=== PATIENT | female | born 1975 | race Caucasian/White ===

== ENCOUNTER → 2019-10-10 10:20 | Outpatient (CLI) | payer OTHER, SELFPAY ==
--- NOTE | 2019-10-10 10:22 | MR_ITS ---
PROCEDURE: MR HEAD/BRAIN WO CON CLINICAL INDICATION: DIZZINESS AND GIDDINESS, WEAKNESS unsteadiness, pain, visual disturbance COMPARISON: No exams were available for comparison TECHNIQUE: The Routine multiplanar multi echo sequences are performed without gadolinium enhancement. FINDINGS: No midline shift, mass effect, intracranial hemorrhage, or hydrocephalus. No evidence of acute infarction The cerebellopontine angles, cerebellum, and brainstem are unremarkable. There is normal hall-white matter differentiation with no abnormal white matter signal intensity evident. The pituitary, optic chiasm, corpus callosum, and craniocervical junction have an unremarkable appearance. No mastoid effusion or sinus air-fluid level. Left IMPRESSION: Negative MRI of the brain without contrast. No acute intracranial findings. Dictated by: Ed Fall MD 10/10/2019 18:31 Electronically signed by Ed Fall MD in [place] 10/11/2019 11:16
== END ==
PROVIDERS: PCP Emergency Medicine; Visit Provider Psychiatry & Neurology Neurology
DX: R42 Dizziness and giddiness (principal); R53.1 Weakness
CPT/HCPCS: 70551

== ENCOUNTER → 2019-10-15 12:34 | Outpatient (CLI) | payer OTHER, SELFPAY | PROVIDERS: PCP Emergency Medicine; Visit Provider Nurse Practitioner Family | DX: R00.2 Palpitations (principal); R06.09 Other forms of dyspnea; R07.9 Chest pain, unspecified | CPT/HCPCS: 93270 ==

== ENCOUNTER → 2019-10-22 08:10 | Outpatient (CLI) | payer OTHER, SELFPAY ==
--- NOTE | 2019-10-22 | CA_ITS ---
APPROVED REPORT Exam: Exercise Treadmill Technologist: Ragini Isabel Ht: 5 ft 7 in Wt: 166 lbs BSA: 1.87 m2 HR: 75 bpm BP: 88/56 mmHg Indications: Chest pain, Palpitations Medical History Medications: Metoprolol,,,,, ProMETHAZINE,,,,, Tizanidine,,,,, ClonAZapam,,,,, Stress Test Details Test: Tera HR Resting HR: 83 bpm Max Heart Rate (APMHR): 179 bpm Max HR Achieved: 154 bpm Target HR (85% APMHR): 152 bpm % of APMHR: 86 Recovery HR: 84 bpm BP Resting BP: 90.0/68.0 mmHg Max BP: 101.0/67.0 mmHg Recovery BP: 93.0/61.[address] Change: Horizontal ST depression, Upsloping ST depression Clinical Exercise duration: 04:52 min Highest Stage Achieved: Exercise capacity: 7.0 METs Stress ECG Conclusion Resting ECG: Sinus rhythm. Tera protocol completed. Patient exercised for 04:52. Test stopped due to fatigue. Patient denied dizziness. Symptoms: Fatigue at peak exercise, resolved in recovery. No chest pain. No shortness of breath. Arrhythmias/Ectopy: No ectopy noted. ST-T Changes: Less than 1.[address] depression. Conclusion: GXT only. No ectopy. Denied chest pain. Less than 1.[address] depression. Adequate exercise capacity with adequate blood pressure response to exercise. Normal exercise treadmill stress test Test Summary RECOVERY 04:00 0.0 0.0 86 . 97/ 64 . . REST 02:51 0.0 0.0 83 . 90/ 68 . . Stage 1 01:00 10.0 1.7 110 . . . . Stage 1 02:00 10.0 1.7 129 . . . . Stage 1 03:00 10.0 1.7 133 . 82/ 70 . . Stage 2 01:00 12.0 2.5 146 . . . . Stage 2 01:52 12.0 2.5 154 . . . Stop exercise at 04:52 RECOVERY 01:00 0.0 0.0 132 . 90/ 74 . . RECOVERY 02:00 0.0 0.0 98 . 90/ 74 . . RECOVERY 03:00 0.0 0.0 82 . 101/ 67 . . RECOVERY 04:00 0.0 0.0 86 . 97/ 64 . . RECOVERY 04:49 0.0 0.0 83 . 93/ 61 . . Electronically signed by : Javi Reese, 10/22/2019 21:55:42
--- NOTE | 2019-10-22 08:12 | CA_ITS ---
APPROVED REPORT EXAM: Comprehensive 2D, Doppler, and color-flow Echocardiogram Door Clamper: Mandie Cantu RDCS Ht: 5 ft 6 in Wt: 167lbs BSA: 1.85 BP: 99/63 mmHg Indications: Chest Pain, Rheumatic Fever, Murmur, Shortness of Breath, Palpitations 2D Dimensions LVOT 1.98 cm (M/F) 1.5-2.5 M-Mode Dimensions RVDd 2.46 cm (0.9-2.6) LVDd 5.62 cm (3.5-5.7) LVDs 4.12 cm (3.5-5.7) IVSd 0.68 cm (0.6-1.1) PWd 0.68 cm (0.6-1.1) EF (Teich) 51.50% FS 26.70% EDV (Teich) 154.90 mL ESV (Teich) 75.10 mL LV Diastology E/A Ratio 1.78 Mitral Valve MV A Velocity 39.00 (40-130 cm/s) Left Ventricle Left atrium is normal size, left ventricle is normal size, there is no concentric left ventricular hypertrophy, visually estimated ejection fraction 55% with no regional wall motion abnormality, diastolic parameters are within normal range. Right Ventricle Right atrium and right ventricular grossly normal size and contractility. Aortic Valve Aortic valve is minimally thickened and fibrosed, there is no aortic stenosis aortic insufficiency. Mitral Valve Mitral valve is grossly normal, there is mild mitral regurgitation. Tricuspid Valve Tricuspid valve is grossly normal, there is mild tricuspid regurgitation, tricuspid regurgitation jet velocity is inadequate for calculation of the right ventricular systolic pressure. Pulmonic Valve Pulmonic valve is poorly visualized. Great Vessels Aortic root is normal size. Pericardium No significant pericardial effusion noted. Conclusion 1. Normal left ventricular size, preserved left ventricular systolic function, visually estimated ejection fraction 55% with no regional wall motion abnormality, diastolic parameters are within normal range. 2. Mild mitral and tricuspid regurgitation. 3. No significant pericardial effusion noted. Electronically signed by : Javi Reese, 10/22/2019 22:03:06
== END ==
PROVIDERS: PCP Emergency Medicine; Visit Provider Internal Medicine
DX: R07.9 Chest pain, unspecified (principal); R00.2 Palpitations; R06.09 Other forms of dyspnea; R42 Dizziness and giddiness; F17.200 Nicotine dependence, unspecified, uncomplicated; F41.9 Anxiety disorder, unspecified; Z86.79 Personal history of other diseases of the circulatory system
CPT/HCPCS: 93017; 93306

== ENCOUNTER → 2019-11-04 16:46 | Outpatient (CLI) | payer OTHER, SELFPAY ==
[2019-11-04 20:13] LABS: Amphetamine/Metha Screen,Urine Negative ng/mL (<1000); Barbiturates Screen,Urine Negative ng/mL (<200); Benzodiazepines Screen,Urine Negative ng/mL (<200); Cannabinoid Screen,Urine Negative ng/mL (<50); Cocaine Screen,Urine Negative ng/mL (<300); Methadone Screen,Urine Negative ng/mL (<300); Opiate Screen,Urine Negative ng/mL (<300); Phencyclidine Screen,Urine Negative ng/mL (<25)
[2019-11-12 10:10] LABS: Alprazolam Negative (Cutoff=100); Benzodiazepines Positive ng/mL (Cutoff=100); Clonazepam Positive (.); Flurazepam Negative (Cutoff=100); Lorazepam Negative (Cutoff=100); Midazolam Negative (Cutoff=100); Temazepam Negative (Cutoff=100); Triazolam Negative (Cutoff=100)
[2019-11-12 16:44] LABS: Clonazepam Confirm 1170 ng/mL (Cutoff=100)
== END ==
PROVIDERS: Visit Provider Emergency Medicine
DX: F41.9 Anxiety disorder, unspecified (principal); Z79.899 Other long term (current) drug therapy
CPT/HCPCS: 80305; 80346

== ENCOUNTER 2020-05-13 19:25 | Emergency (ER) | payer OTHER, SELFPAY ==
[2020-05-13 19:26] VITALS: BP 111/80; PULSE 131; RESP 20; TEMP 36.9; O2SAT 100; BMI 23.5
--- NOTE | 2020-05-13 19:44 | HMH.EDUTC ---
[facility] [place] Impression: Allergic rhinitis Qualifiers: Allergic rhinitis trigger: unspecified Allergic rhinitis seasonality: unspecified Qualified Code(s): J30.9 - Allergic rhinitis, unspecified Disposition: Home, Self-Care Condition on Discharge: Good Instructions: DI for Allergic Rhinitis, Allergic Rhinitis, Preventing the Spread of Coronavirus Discharge Instructions Additional Instructions: *Monitor Temp, Over the counter Motrin or Tylenol as directed/as needed Tylenol every 4 hours and Motrin every 6 hours (as long as your family doctor has told you that you can take it) for fever or pain. and straight to ER if unable to lower temp less than 101.0 after medication given *Warm salt water gargles may help to soothe the throat *Throat Lozenges *Warm fluids like tea with honey may help to soothe the throat *Sleep elevated *Humidifier/Vaporizer *Flonase 2 sprays in each nostril daily but be aware that it may take 2-3 days before you notice improvement Take medication as prescribed You was swabbed for COVID19, go home self quarantine and follow further instructions that was given to you on the handout. Call back to the [facility] on Monday for your results, no work or being around people or in the public until negative test Your throat swab was sent for culture. Those results are typically sent to your primary care. Be sure to follow up in 2-3 days with your family doctor/primary care physician if no improvement so they can review those result and treat if necessary. If you don?t have a primary care doctor, I recommend you get one but in the mean time, you will have to return to a walk in clinic Follow up IMMEDIATELY for new or worsening symptoms or no Noticeable improvement over the next 48-72 hours. 911 for difficulty breathing or swallowing Prescriptions: Cetirizine HCl 10 mg PO DAILY 30 Days #30 tab Transmission Status: Pending to [facility] # Fluticasone Propionate [Flonase 50mcg nasal spray 16gm] 1 - 2 spr NS DAILY #1 bottle Transmission Status: Pending to [facility]: [place] # Referrals: Frankie Cleveland MD [Primary Care Provider] - As needed Forms: Work/School Release Time of Disposition: 19:58 Medical Decision Making - Rhys Inquiry Pt receiving controlled substance: No Rhys was queried for this patient: No Vital Signs: 05/13/20 19:26 Temperature 98.4 F Temperature Source Oral Pulse Rate [Right] 131 H Respiratory Rate 20 Blood Pressure [Right Arm] 111/80 Blood Pressure Mean [Right Arm] 90 02 Sat by Pulse Oximetry 100 - Lab Data Lab results reviewed: Yes: I reviewed the patient's lab results. [facility] [place] - General Stated complaint: fever Time Seen by Provider: 05/13/20 19:45 Mode of Arrival: Ambulatory Limitations: No Limitations Description of Symptoms (Recalled from Triage Doc. by RN): C/O fever, dry mouth, sore throat and body aches that began today. HEENT Symptoms (Recalled from RN notes): Yes Resp Symptoms (Recalled from RN notes): No Skin Symptoms (Recalled from RN notes): No MS Symptoms (Recalled from RN notes): No Functional Status (Recalled from RN notes): na - History of Present Illness Provider Complaint: Patient states that she woke up earlier today with fever. States that she is unsure how high it was and had dry scratchy throat, and body aches, State that it scared her and she started feeling anxious worried that she may have Coronavirus so she came in to get checked States that she has bad allergies and has been out of her medication for over a month - Related Data Home Medications Medication Instructions Recorded Confirmed promethazine 25 mg tablet 25 mg PO Q6H PRN 10/07/19 11/04/19 tizanidine 4 mg capsule 4 mg PO Q8H PRN 10/07/19 11/04/19 trazodone 100 mg tablet 200 mg PO DAILY tab 11/04/19 11/04/19 Previous Rx's Medication Instructions Recorded clonazepam 0.5 mg tablet 0.5 mg PO BID #60 tab 10/07/19 metoprolol succinate 25 mg 25 mg
[2020-05-13 19:52] LABS: UTC Strep Screen (Rapid) Negative (Negative)
[2020-05-13 20:01] VITALS: BP 145/87; PULSE 115; RESP 20; TEMP 36.8; O2SAT 98
[2020-05-15 17:50] LABS: Covid-19 Nasal PCR Sendout Lex Not Detected
== END 2020-05-13 20:04 | disposition home or self-care (01) ==
PROVIDERS: Emergency Provider Nurse Practitioner; PCP Emergency Medicine
DX: J30.9 Allergic rhinitis, unspecified (principal); F41.8 Other specified anxiety disorders; R01.1 Cardiac murmur, unspecified; F17.210 Nicotine dependence, cigarettes, uncomplicated; Z88.5 Allergy status to narcotic agent
CPT/HCPCS: 87880; 99202; U0004

== ENCOUNTER 2020-07-08 20:13 | Emergency (ER) | payer OTHER, SELFPAY ==
[2020-07-08 20:15] VITALS: BP 102/65; PULSE 86; RESP 16; TEMP 36.9; O2SAT 97; BMI 22.7
--- NOTE | 2020-07-08 20:23 | ECG_ITS ---
APPROVED REPORT Exam: Resting ECG HR:80 bpm ECG Measurements Heart Rate 80 AXES KS 124 P 80 QRSd 84 QRS 72 QT 376 T 72 QTc 433 <Conclusion> Normal sinus rhythm Normal ECG Electronically signed by : Bon Knight, 07/10/2020 07:53:35
--- NOTE | 2020-07-08 20:37 | XR_ITS ---
PROCEDURE: XR CHEST 2V CLINICAL HISTORY: lightheaded Dehydration COMPARISON: CR CXR CHEST(2 VIEWS-NOT PORTABLE) from 07/17/2014 CR XR CHEST 2V from 07/09/2019 CR XR CHEST 2V from 08/27/2019 FINDINGS: The cardiomediastinal silhouette and pulmonary vascularity are within normal limits. The lungs are clear without infiltrates, suspicious nodules, or pleural effusions. No acute bony abnormalities. IMPRESSION: No acute findings. Dictated b Ed Fall MD 07/09/2020 06:21 Ed Fall MD in [place] 07/09/2020 06:21
[2020-07-08 20:39] VITALS: BP 100/63; PULSE 71; RESP 18; O2SAT 98
--- NOTE | 2020-07-08 20:43 | HMH.EDDIZZ ---
ED Disposition Clinical Impression: Lightheadedness Disposition: Home, Self-Care Condition on Discharge: Good Instructions: Dizziness, Nonvertigo Additional Instructions: fluids and see pcp for follow up Referrals: Frankie Cleveland MD [Primary Care Provider] - - Critical Care Critical Care Time: No Attestation: On 07/08/20, the high probability of a clinically significant, sudden or life threatening deterioration of the following system(s) required my full and direct attention, intervention and personal management. The time I documented below is in addition to time spent performing reported procedures but includes the following listed in this critical care notation. Medical Decision Making - Medical Records Medical records reviewed: Yes: I reviewed the patient's medical records. - Rhys Inquiry Pt receiving controlled substance: No Vital Signs: 07/08/20 20:15 07/08/20 20:39 07/08/20 21:30 Temperature 98.5 F Temperature Source Oral Pulse Rate [Left Radial] 86 71 67 Respiratory Rate 16 18 18 Blood Pressure [Right Arm] 102/65 L 100/63 L 103/63 L Blood Pressure Mean [Right Arm] 77 75 76 Blood Pressure Source [Right Arm] Automatic Cuff Blood Pressure Position [Right Arm] Sitting 02 Sat by Pulse Oximetry 97 98 100 Oxygen Delivery Method Room Air Room Air - Lab Data Lab results reviewed: Yes: I reviewed the patient's lab results. Lab Results 07/08/20 21:25: WBC 10.8, RBC 4.49, Hgb 14.3, Hct 43.3, MCV 96.4, MCH 31.8 H, MCHC 33.0, RDW 13.2, Plt Count 311, MPV 8.9, Neut % (Auto) 57.9, Lymph % (Auto) 31.9, Garza % (Auto) 4.6, Eos % (Auto) 4.9, Baso % (Auto) 0.6, Neut # (Auto) 6.3, Lymph # (Auto) 3.5, Garza # (Auto) 0.5, Eos # (Auto) 0.5 H, Baso # (Auto) 0.1 07/08/20 21:25: Sodium 139, Potassium 3.9, Chloride 104, Carbon Dioxide 27, Anion Gap 11.9, BUN 6 L, Creatinine 0.70, Estimated Creat Clear 109, Estimated GFR 92, Est GFR ( Amer) 111, Glucose 95, Calcium 9.7, Total Bilirubin 0.8, AST 21, ALT 13, Alkaline Phosphatase 67, Troponin I < 0.01, Total Protein 8.0, Albumin 4.5, Globulin 3.5 H, Albumin/Globulin Ratio 1.3 Result diagrams: 07/08/20 21:25 07/08/20 21:25 Orders (Tests/Meds): ED MEDICATIONS Generic Name Dose Route Start Last Admin Trade Name Freq PRN Reason Stop Dose Admin Sodium Chloride 1,000 mls @ 999 mls/hr 07/08/20 21:30 07/08/20 21:19 Sod Chlor 0.9% 1000ml Bag IV 07/08/20 22:30 999 mls/hr .Q1H1M EDITH Administration ORDERS Category Date Time Status XR chest 2V Stat Exams 07/08/20 20:37 Taken Troponin I Q3H Lab 07/08/20 23:45 Ordered Troponin I Q3H Lab 07/09/20 02:45 Ordered - Radiology Data #1 Image(s): Chest Image Reviewed: Yes I reviewed the patient's radiology image Preliminary Findings: Normal/NAD - ECG Data Tracing #1 Normal Sinus Rhythm: Yes Ischemic changes: non-specific ST-T wave changes Dizzy HPI - General Chief Complaint: Dizziness Stated Complaint: sweating and shaking Time Seen by Provider: 07/08/20 20:25 Mode of Arrival: Ambulatory Source of Information: Patient, Medical Record Limitations: No Limitations Description of Symptoms (Recalled from ER Triage Doc. 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 pt stated saw their [employer] on sight who suggested she was dehydrated. pt stated she is currently feeling better but still feels a little off pt denies any SOB or chest pain at this time. - History of Present Illness HPI Narrative: acute onset of lightheded and dizzy with sweating with no loc or chest pain or palpitation MD complaint: dizziness, lightheadedness Onset (ago): hour(s) Timing: sudden onset Description: lightheadedness History of similar episodes: No Severity: moderate Associated symptoms: diaphoresis - Related Data Home Medications Medication Instructions Recorded Confirmed rosalinda
--- NOTE | 2020-07-08 21:19 | PC.NURSE ---
Pt is a difficult stick, 22ga placed in wrist unable to get blood draw, lab called for blood
[2020-07-08 21:30] VITALS: BP 103/63; PULSE 67; RESP 18; O2SAT 100
[2020-07-08 21:35] LABS: Basophils # 0.1 K/mm3 (0-0.2); Basophils % 0.6 % (0.1-2.0); Eosinophils # 0.5 K/mm3 (0.0-0.4); Eosinophils % 4.9 % (0.1-12.0); Hematocrit 43.3 % (37.0-47.0); Hemoglobin 14.3 g/dL (12.2-16.2); Lymphocytes # 3.5 K/mm3 (0.7-4.5); Lymphocytes % 31.9 % (10-50); Mean Corpuscular Hemoglobin 31.8 pg (27.0-31.2); Mean Corpuscular Volume 96.4 fl (81-99); Mean Platelet Volume 8.9 fl (7.4-10.4); Monocytes # 0.5 K/mm3 (0.1-1.0); Monocytes % 4.6 % (1.7-9.3); Neutrophils # 6.3 K/mm3 (1.8-7.8); Neutrophils % 57.9 % (37.0-80.0); Platelet Count 311 K/mm3 (142-424); Red Blood Count 4.49 M/mm3 (4.20-5.40); Red Cell Distribution Width 13.2 % (11.5-17.5); White Blood Count 10.8 K/mm3 (4.8-10.8)
[2020-07-08 21:44] LABS: Chloride 104 mmol/L (98-107); Potassium 3.9 mmoL/L (3.5-5.1); Sodium 139 mmol/L (136-145)
[2020-07-08 21:46] LABS: Blood Urea Nitrogen 6 mg/dl (7-17); Creatinine Clearance Estimated 109 mL/min (50-200); Estimated Glomerular Filt Rate 92 ml/min (>60); GFR (African American) 111 ML/MIN (>60)
[2020-07-08 21:47] LABS: Alanine Aminotransferase 13 U/L (12-78); Albumin Level 4.5 g/dl (3.5-5.0); Albumin/Globulin Ratio 1.3 (1.1-1.8); Alkaline Phosphatase 67 U/L (38-126); Anion Gap 11.9 mEq/L (5-15); Aspartate Amino Transferase 21 U/L (14-36); Bilirubin,Total 0.8 mg/dl (0.2-1.3); Calcium 9.7 mg/dl (8.4-10.2); Carbon Dioxide 27 mmol/L (22.0-30.0); Globulin 3.5 g/dL (1.3-3.2); Glucose 95 mg/dl (74-100)
[2020-07-08 22:05] LABS: Troponin I < 0.01 ng/ml (0.00-0.034)
[2020-07-08 22:31] VITALS: BP 98/55; PULSE 75; RESP 14; TEMP 36.9; O2SAT 100
== END 2020-07-08 22:34 | disposition home or self-care (01) ==
PROVIDERS: Emergency Provider Emergency Medicine; PCP Emergency Medicine
DX: R42 Dizziness and giddiness (principal); F41.8 Other specified anxiety disorders; R01.1 Cardiac murmur, unspecified; F17.210 Nicotine dependence, cigarettes, uncomplicated; Z88.5 Allergy status to narcotic agent; Z79.899 Other long term (current) drug therapy
CPT/HCPCS: 36415; 71046; 80053; 84484; 85025; 93005; 96365; 99283

== ENCOUNTER → 2021-09-20 21:00 | Outpatient (CLI) | payer OTHER, SELFPAY ==
[2021-09-20 21:14] LABS: Influenza A, PCR Not Detected (NotDetected); Influenza B, PCR Not Detected (NotDetected)
[2021-09-20 21:35] LABS: Coronavirus 19, PCR Detected (NotDetected)
== END ==
PROVIDERS: PCP Emergency Medicine; Visit Provider Emergency Medicine
DX: Z20.822 Contact with and (suspected) exposure to COVID-19 (principal); U07.1 COVID-19
CPT/HCPCS: C9803; U0003; U0005

== ENCOUNTER 2021-10-19 12:34 | Emergency (ER) | payer OTHER, SELFPAY ==
[2021-10-19 12:44] VITALS: BP 108/68; PULSE 85; RESP 18; TEMP 37.1; O2SAT 100; BMI 23.5
--- NOTE | 2021-10-19 14:31 | HMH.EDALLER ---
ED Disposition Clinical Impression: Allergic reaction Disposition: Home, Self-Care Condition on Discharge: Good Additional Instructions: Please follow up with your primary care physician in 2-3 days for further management. Please take the famotidine and benadryl as prescribed. Please return back to emergency department for any concerning symptoms such as difficulty breathing, wheezing, chest pain, difficulty swallowing, scratchy throat, worsening rash or any other concerning symptoms. Prescriptions: diphenhydrAMINE HCL [Benadryl Allergy] 25 mg PO Q8 PRN 3 Days #9 tab PRN Reason: Rash Transmission Status: Received by [employer] # Famotidine 10 mg PO DAILYP PRN #3 tab PRN Reason: Rash Transmission Status: Received by [employer] # Referrals: Frankie Cleveland MD [Primary Care Provider] - - Critical Care Critical Care Time: No Attestation: On 10/19/21, the high probability of a clinically significant, sudden or life threatening deterioration of the following system(s) required my full and direct attention, intervention and personal management. The time I documented below is in addition to time spent performing reported procedures but includes the following listed in this critical care notation. Medical Decision Making - Medical Records Medical records reviewed: Yes: I reviewed the patient's medical records. - Rhys Inquiry Pt receiving controlled substance: No Vital Signs: 10/19/21 12:44 10/19/21 15:54 Temperature 98.8 F 98.8 F Temperature Source Oral Oral Pulse Rate 82 Pulse Rate [Left Radial] 85 Respiratory Rate 18 18 Blood Pressure 110/70 Blood Pressure [Right Arm] 108/68 L Blood Pressure Mean [Right Arm] 81 02 Sat by Pulse Oximetry 100 Oxygen Delivery Method Room Air Room Air Orders (Tests/Meds): ED MEDICATIONS Discontinued Medications Generic Name Dose Route Start Last Admin Trade Name Freq PRN Reason Stop Dose Admin Dexamethasone Sodium Phosphate 8 mg 10/19/21 12:51 10/19/21 13:26 Dexamethasone 4mg/Ml 1ml Vial IV 10/19/21 12:52 8 mg ONCE ONE Administration Diphenhydramine HCl 50 mg 10/19/21 12:51 10/19/21 15:11 Diphenhydramine 50mg/Ml Vial IV 10/19/21 12:52 Not Given ONCE ONE Diphenhydramine HCl 25 mg 10/19/21 13:44 10/19/21 13:45 Diphenhydramine 25mg Capsule PO 10/19/21 13:45 25 mg ONCE ONE Administration Famotidine 20 mg 10/19/21 12:51 10/19/21 13:25 Famotidine 20mg/2ml Vial IV 10/19/21 12:52 20 mg ONCE ONE Administration Sodium Chloride 1,000 mls @ 999 mls/hr 10/19/21 13:00 10/19/21 13:26 Sod Chlor 0.9% 1000ml Bag IV 10/19/21 14:00 999 mls/hr .Q1H1M EDITH Administration Sodium Chloride 8 ml 10/19/21 12:51 Sodium Chloride 0.9% 10ml Vial IV 11/18/21 12:50 NEEDED PRN dilute pepcid Medical Decision Narrative: Miss north is a 45 yo female w/ no significant PMh who presents w/ generalized pruritic, uricarial rash which appeared today. No mucosal involvement. No other organ involvement. Denies dysphagia, sore or itchy throat. No wheezing, chest pain or dyspnea. no N/V , abd pain or other GI symptoms. Physical exam patient is hemodynamically stable, no mucosal involvement. Patient denies any new medication use. No known allergen. Given current clniical picture, low concern for anaphalxis. Patient is given benadry, 1L IV LR,and famotidine. Patient is instructed to wash all of her clothing, bed spread. Patient is also given benadryl and famotidine script for outpatient management to prevent rebound symptoms. Patient instructed to return if symptoms worsen. Allergic React/Insect Bite HPI - General Chief complaint: Allergic Reaction Stated complaint: rash all over Time Seen by Provider: 10/19/21 12:40 Mode of Arrival - ED Triage: Ambulatory Source of Information: Patient Limitations: No Limitations - History of Present Illness HPI narrative: Miss North is a 45 yo fem
[2021-10-19 15:54] VITALS: BP 110/70; PULSE 82; RESP 18; TEMP 37.1; O2SAT 100
== END 2021-10-19 16:02 | disposition home or self-care (01) ==
PROVIDERS: Emergency Provider Student in an Organized Health Care Education/Training Program; PCP Emergency Medicine
DX: T78.40XA Allergy, unspecified, initial encounter (principal); F41.8 Other specified anxiety disorders; R01.1 Cardiac murmur, unspecified
CPT/HCPCS: 96365; 96375; 99282

== ENCOUNTER 2021-11-02 14:00 | Outpatient (RCR) | payer OTHER, SELFPAY ==
--- NOTE | 2021-10-29 12:29 | HMH.PTOPEV ---
PT Outpatient Evaluation Rehab PT Outpatient Evaluation Start: 10/29/21 11:37 Freq: Status: Active Protocol: Document 10/29/21 11:54 DAVIN (Rec: 10/29/21 12:29 DAVIN [id number]) Electronically Signed By Grant Burrell, PT 10/29/21 11:54 Outpatient Therapy Subjective History Subjective History Patient is a 45 year old female presenting to outpatient PT with reports of left lower quadrant pain. This is a workmans comp case. 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 She was taken to [facility] ED where they suspected possible hernia. She did receive a CT scan, but no imaging/reports on site to observe today. Patient reports a sharp, stabbing, cramping sensation with movement and palpation. I can feel things moving around on the inside of my belly. Comorbidities include hx of rheumatic fever resulting in cardiac regurgitation, hx of and cholecystectomy. PT suggests that she is not a good candidate for stretching or core stabilization at this time. Chief Complaint Pain,Spasms,Swelling Symptom Type Sharp,Stabbing Symptoms Relieved By Rest/Positioning,Heat,Ice,OTC Meds Symptoms Aggravated By Standing,Physical Activity, Twisting,Walking,Lifting, Sneeze/Coughing Prior Functional Limitations None Current Functional Limitations Reaching,Lifting,Housework, Dressing,Sleeping,Standing, Squatting,Recreation Activity, Walking,Stairs,Bending/ Stooping Symptom Description Constant but Variable Level of pain today (0-10) 2 Pain scale - at its best (0-10) 2 Pain scale - at its worst (0-10) 7 Lumbopelvic Eval Assistive device Assistive Devices None / NA Gait Observation General Gait Pattern Observation Antalgic Gait,Decrease Weight
== END 2021-11-02 14:05 | disposition home or self-care (01) ==
LOC: PT 14:00
PROVIDERS: Visit Provider Emergency Medicine
DX: R10.32 Left lower quadrant pain (principal)
CPT/HCPCS: 97163

== ENCOUNTER → 2022-01-31 09:32 | Outpatient (CLI) | payer OTHER, SELFPAY ==
[2022-01-31 09:57] LABS: Basophils # 0.2 K/mm3 (0-0.2); Basophils % 1.5 % (0.1-2.0); Eosinophils # 0.9 K/mm3 (0.0-0.4); Eosinophils % 9.2 % (0.1-12.0); Hematocrit 43.9 % (37.0-47.0); Hemoglobin 14.1 g/dL (12.2-16.2); Lymphocytes # 2.4 K/mm3 (0.7-4.5); Lymphocytes % 24.4 % (10-50); Mean Corpuscular HGB Conc 32.1 g/dL (31.8-35.4); Mean Corpuscular Hemoglobin 31.8 pg (27.0-31.2); Mean Corpuscular Volume 98.9 fl (81-99); Mean Platelet Volume 10.4 fl (7.4-10.4); Monocytes # 0.7 K/mm3 (0.1-1.0); Monocytes % 7.1 % (1.7-9.3); Neutrophils # 5.8 K/mm3 (1.8-7.8); Neutrophils % 57.8 % (37.0-80.0); Platelet Count 392 K/mm3 (142-424); Red Blood Count 4.44 M/mm3 (4.20-5.40); Red Cell Distribution Width 12.9 % (11.5-17.5)
[2022-01-31 10:27] LABS: Chloride 101 mmol/L (98-107); Potassium 3.8 mmoL/L (3.5-5.1); Sodium 136 mmol/L (136-145)
[2022-01-31 10:29] LABS: Bilirubin,Unconjugated 0.3 mg/dL (0.0-1.1); Blood Urea Nitrogen 5 mg/dl (7-17); Estimated Glomerular Filt Rate 91 ml/min (>60); GFR (African American) 110 ML/MIN (>60)
[2022-01-31 10:30] LABS: Alanine Aminotransferase 25 U/L (12-78); Albumin Level 4.1 g/dl (3.5-5.0); Alkaline Phosphatase 65 U/L (38-126); Anion Gap 10.8 mEq/L (5-15); Aspartate Amino Transferase 26 U/L (14-36); Bilirubin,Direct 0.3 mg/dl (0.0-0.4); Bilirubin,Indirect 0.3 mg/dL (0.0-0.9); Bilirubin,Total 0.6 mg/dl (0.2-1.3); Calcium 8.9 mg/dl (8.4-10.2); Carbon Dioxide 28 mmol/L (22.0-30.0); Chol/HDL Ratio 3.6 (1-3.5); Cholesterol 195 mg/dl (140-200); Glucose 65 mg/dl (74-100); HDL Cholesterol 54 mg/dl (40-60); Total Protein,Serum 6.8 g/dl (6.3-8.2); Triglycerides 88 mg/dl (30-150); VLDL Cholesterol 18 mg/dL (0-40)
[2022-01-31 10:42] LABS: Direct LDL Cholesterol 122.51 mg/dL (100-129)
[2022-01-31 10:46] LABS: Free T4 (Free Thyroxine) 1.12 ng/dl (0.78-2.19)
== END ==
PROVIDERS: Visit Provider Nurse Practitioner Family
DX: R06.09 Other forms of dyspnea (principal); R42 Dizziness and giddiness; R00.2 Palpitations; R00.0 Tachycardia, unspecified; I95.9 Hypotension, unspecified; F17.200 Nicotine dependence, unspecified, uncomplicated
CPT/HCPCS: 36415; 80048; 80061; 80076; 84439; 84443; 85025

== ENCOUNTER → 2022-02-10 13:34 | Outpatient (CLI) | payer OTHER, SELFPAY ==
--- NOTE | 2022-02-10 13:38 | CA_ITS ---
APPROVED REPORT EXAM: Comprehensive 2D, Doppler, and color-flow Echocardiogram Hydrotel Operator: ALEJANDRA Mazariegos, RVS Ht: 5 ft 7 in Wt: 157lbs BSA: 1.82 BP: 88/65 mmHg Indications: Axiety, Hyperventilation, Tachycardia, Murmur, sob, smoker 2D Dimensions IVSd 0.90 cm LVEF (Visual) 55.40 % PWd 0.90 cm LA Volume 28.80 mL LVDd 5.27 cm LA Volume Index 15.80 mL/m2 (M/F) 16-34 LVDs 3.74 cm Aortic Root 2.78 cm Left Atrium 2.70 cm LVOT 1.98 cm (M/F) 1.5-2.5 M-Mode Dimensions RVDd 2.21 cm (0.9-2.6) LA Diam 2.59 cm (1.9-4.0) LVDd 4.87 cm (3.5-5.7) Ao Diam 3.30 cm (2.0-3.7) LVDs 3.58 cm (3.5-5.7) IVSd 0.80 cm (0.6-1.1) PWd 0.68 cm (0.6-1.1) EF (Teich) 51.70% EPSs 0.61 cm FS 26.50% EDV (Teich) 111.20 mL TAPSE 1.79 (<1.7) ESV (Teich) 53.70 mL LV Diastology E Decel Time 177.00 (160-240 msec) E/A Ratio 0.93 MED E' 11.00 (< 7 cm/sec) MED A' 14.90 cm/s E'/MED E' Ratio 6.94 (>14) LAT E' 14.20 (<10 cm/sec) LAT A' 10.00 cm/s E/LAT E' Ratio 5.37 (>14) Pulm Vein s 58.00 cm/sec Aortic Valve LVOT Max 103.00 (70-110 cm/s) LVOT VTI 17.27 cm AoV Peak Jhonathan. 124.00 (50-130 cm/s) AO Peak GR. 6.10 mmHg AO Mean GR. 3.00 (<5 mmHg) AO VTI 20.44 (18-25 cm) KVNG (VTI) 2.60 (2.5-4.5 cm2) Mitral Valve MV E Max Jhonathan. 76.00 (40-130 cm/s) MV A Velocity 82.00 (40-130 cm/s) E/A Ratio 0.93 MV Decel. Time 177.00 (160-240 ms) MV Mean Gr. 0.90 (<2mmHg) MV PHT 52.00 ms Pulmonary Valve PV Peak Velocity 111.00 (50-150 cm/s) AR End VMAX 159.00 cm/s Left Ventricle Left atrium is qualitatively mildly enlarged, left ventricle is normal size, preserved left ventricular systolic function, visually estimated ejection fraction 55% with no regional wall motion abnormality. Diastolic parameters are inconclusive. Right Ventricle Right atrium and right ventricle are normal size and contractility. Aortic Valve Aortic valve is minimally thickened and fibrosed, there is no aortic stenosis or aortic insufficiency. Mitral Valve Mitral valve grossly normal, there is trace mitral regurgitation. Tricuspid Valve Tricuspid grossly normal, there is trace tricuspid regurgitation, tricuspid regurgitation jet velocity is inadequate for calculation of the right ventricular systolic pressure. Pulmonic Valve Pulmonic valve is poorly visualized. Great Vessels Aortic root is normal size. Inferior vena cava normal size normal inspiratory collapse. Pericardium No significant pericardial effusion noted. Conclusion 1. Normal left ventricular size, preserved left ventricular systolic function, visually estimated ejection fraction 55% with no regional wall motion abnormality, diastolic parameters are inconclusive. 2. Minimally thickened and calcified aortic valve without aortic stenosis or aortic insufficiency. 3. Trace mitral and tricuspid regurgitation. 4. No significant pericardial effusion noted. 5. Inferior vena cava is normal size with normal inspiratory collapse. Electronically signed by : Javi Reese MD 02/11/2022 11:07:31
== END ==
PROVIDERS: PCP Emergency Medicine; Visit Provider Nurse Practitioner Family
DX: R06.09 Other forms of dyspnea (principal); R00.2 Palpitations; R00.0 Tachycardia, unspecified; F17.200 Nicotine dependence, unspecified, uncomplicated
CPT/HCPCS: 93306

== ENCOUNTER → 2022-04-20 10:08 | Outpatient (CLI) | payer OTHER, SELFPAY ==
[2022-04-20 10:34] LABS: Basophils # 0.1 K/mm3 (0-0.2); Basophils % 1.4 % (0.1-2.0); Eosinophils # 0.7 K/mm3 (0.0-0.4); Eosinophils % 8.4 % (0.1-12.0); Hematocrit 44.2 % (37.0-47.0); Hemoglobin 14.6 g/dL (12.2-16.2); Lymphocytes # 2.4 K/mm3 (0.7-4.5); Lymphocytes % 30.9 % (10-50); Mean Corpuscular Hemoglobin 32.6 pg (27.0-31.2); Mean Corpuscular Volume 98.7 fl (81-99); Mean Platelet Volume 8.7 fl (7.4-10.4); Monocytes # 0.5 K/mm3 (0.1-1.0); Monocytes % 6.1 % (1.7-9.3); Neutrophils # 4.2 K/mm3 (1.8-7.8); Neutrophils % 53.2 % (37.0-80.0); Platelet Count 467 K/mm3 (142-424); Red Blood Count 4.48 M/mm3 (4.20-5.40); Red Cell Distribution Width 13.4 % (11.5-17.5); White Blood Count 7.8 K/mm3 (4.8-10.8)
[2022-04-20 10:59] LABS: Erythrocyte Sedimentation Rate 16 mm/hr (0-20)
[2022-04-20 11:17] LABS: Alanine Aminotransferase 56 U/L (12-78); Albumin Level 4.3 g/dl (3.5-5.0); Albumin/Globulin Ratio 1.5 (1.1-1.8); Alkaline Phosphatase 69 U/L (38-126); Aspartate Amino Transferase 55 U/L (14-36); Bilirubin,Total 0.3 mg/dl (0.2-1.3); Blood Urea Nitrogen 5 mg/dl (7-17); Calcium 9.6 mg/dl (8.4-10.2); Carbon Dioxide 32 mmol/L (22.0-30.0); Chloride 102 mmol/L (98-107); Estimated Glomerular Filt Rate 91 ml/min (>60); GFR (African American) 110 ML/MIN (>60); Globulin 2.9 g/dL (1.3-3.2); Glucose 90 mg/dl (74-100); Sodium 140 mmol/L (136-145); Total Protein,Serum 7.2 g/dl (6.3-8.2)
[2022-04-20 11:22] LABS: C-Reactive Protein 0.7 mg/L (0-4)
[2022-04-20 11:33] LABS: 25-OH Vitamin D, Total 33.1 ng/mL (30-100)
[2022-04-20 11:48] LABS: Thyroid Stimulating Hormone 2.61 uIU/mL (0.465-4.68)
[2022-04-20 12:07] LABS: Vitamin B12 194 pg/mL (239-931)
[2022-04-21 11:32] LABS: RA Latex Turbid. <10.0 IU/mL (<14.0)
[2022-04-22 11:53] LABS: Antinuclear Antibodies, IFA Negative (.)
== END ==
PROVIDERS: PCP Nurse Practitioner Family; Visit Provider Nurse Practitioner Family
DX: M06.9 Rheumatoid arthritis, unspecified (principal); M25.50 Pain in unspecified joint; R53.83 Other fatigue
CPT/HCPCS: 36415; 80053; 82306; 82607; 84443; 84550; 85025; 85651; 86038; 86140; 86431

== ENCOUNTER 2022-06-16 19:39 | Observation (INO) | payer OTHER, SELFPAY ==
--- NOTE | 2022-06-16 19:36 | ECG_ITS ---
APPROVED REPORT Exam: Resting ECG HR:90 bpm ECG Measurements Heart Rate 90 AXES SC 128 P 92 QRSd 95 QRS 84 QT 369 T 64 QTc 416 Conclusion SINUS RHYTHM NORMAL ECG UNCONFIRMED REPORT Electronically signed by : Bon Knight MD 06/17/2022 15:35:54
[2022-06-16 19:40] VITALS: BP 110/69; PULSE 92; RESP 18; TEMP 37.1; O2SAT 97; BMI 23.5
--- NOTE | 2022-06-16 19:41 | XR_ITS ---
PROCEDURE INFORMATION: Exam: XR Chest Exam date and time: 06/16/22 07:36 PM Age: 46 years old Clinical indication: Pain; Left-sided; Additional info: Lt arm pain TECHNIQUE: Imaging protocol: Radiologic exam of the chest. Views: 2 views. COMPARISON: CR XR CHEST 2V 07/08/20 08:46 PM FINDINGS: Lungs: Unremarkable. No consolidation. Pleural spaces: Unremarkable. No pleural effusion. No pneumothorax. Heart/Mediastinum: Unremarkable. No cardiomegaly. Bones/joints: Unremarkable. IMPRESSION: No acute findings.
[2022-06-16 20:00] LABS: Basophils # 0.1 K/mm3 (0-0.2); Basophils % 1.2 % (0.1-2.0); Eosinophils # 0.8 K/mm3 (0.0-0.4); Eosinophils % 6.9 % (0.1-12.0); Hematocrit 40.8 % (37.0-47.0); Hemoglobin 14.1 g/dL (12.2-16.2); Lymphocytes # 3.6 K/mm3 (0.7-4.5); Lymphocytes % 30.7 % (10-50); Mean Corpuscular HGB Conc 34.6 g/dL (31.8-35.4); Mean Corpuscular Hemoglobin 32.2 pg (27.0-31.2); Mean Corpuscular Volume 93.2 fl (81-99); Mean Platelet Volume 9.2 fl (7.4-10.4); Monocytes # 0.6 K/mm3 (0.1-1.0); Monocytes % 5.2 % (1.7-9.3); Neutrophils # 6.5 K/mm3 (1.8-7.8); Platelet Count 429 K/mm3 (142-424); Red Blood Count 4.37 M/mm3 (4.20-5.40); Red Cell Distribution Width 12.2 % (11.5-17.5); White Blood Count 11.6 K/mm3 (4.8-10.8)
[2022-06-16 20:02] LABS: Chloride 103 mmol/L (98-107); Sodium 140 mmol/L (136-145)
[2022-06-16 20:05] LABS: Blood Urea Nitrogen 6 mg/dl (7-17); Creatinine Clearance Estimated 129 mL/min (50-200); Estimated Glomerular Filt Rate 109 ml/min (>60); GFR (African American) 131 ML/MIN (>60)
[2022-06-16 20:06] LABS: Carbon Dioxide 29 mmol/L (22.0-30.0); Glucose 130 mg/dl (74-100)
[2022-06-16 20:07] LABS: Calcium 9.9 mg/dl (8.4-10.2)
[2022-06-16 20:20] LABS: Troponin I < 0.01 ng/ml (0.00-0.034)
[2022-06-16 20:21] LABS: Coronavirus 19, PCR Not Detected (NotDetected); Influenza A, PCR Not Detected (NotDetected); Influenza B, PCR Not Detected (NotDetected)
[2022-06-16 20:28] VITALS: BP 105/66; PULSE 70; O2SAT 100
--- NOTE | 2022-06-16 20:46 | PC.NURSE ---
Allergy bracelet placed on pt. Pt ambulatory to bathroom with no assistance.
[2022-06-16 20:55] LABS: Microscopic, Urine URINE MICROSCOPIC (MICROSCOPIC)
[2022-06-16 20:56] LABS: Appearance,Urine CLEAR (Clear); Bilirubin,Urine Negative (Negative); Blood, Urine 2+ (Negative); Color,Urine YELLOW (Yellow); Glucose,Urine (UA) Negative (Negative); Ketones,Urine Negative (Negative); Leukocyte Esterase,Urine Negative (Negative); Nitrate,Urine Negative (Negative); Protein,Urine Negative (Negative); Specific Gravity, Urine <= 1.005 (1.005-1.030); Urobilinogen,Urine 0.2 EU/dl (0.2)
[2022-06-16 21:10] LABS: Bacteria,Urine 1+ /lpf
--- NOTE | 2022-06-16 21:29 | PC.NURSE ---
at speaking with pt about POC
--- NOTE | 2022-06-16 21:33 | HMH.EDCP ---
ED Disposition Clinical Impression: Unstable angina pectoris, Hx of rheumatic fever, Tobacco use Disposition: Admitted as Observation Condition on Discharge: Good - Critical Care Critical Care Time: No Attestation: On 06/16/22, the high probability of a clinically significant, sudden or life threatening deterioration of the following system(s) required my full and direct attention, intervention and personal management. The time I documented below is in addition to time spent performing reported procedures but includes the following listed in this critical care notation. Medical Decision Making - Medical Records Medical records reviewed: Yes: I reviewed the patient's medical records. - Rhys Inquiry Pt receiving controlled substance: No Vital Signs: 06/16/22 19:40 06/16/22 20:28 06/16/22 21:35 Temperature 98.7 F Temperature Source Oral Pulse Rate 70 82 Pulse Rate [Right] 92 H Respiratory Rate 18 Blood Pressure 105/66 L 99/64 L Blood Pressure [Right Arm] 110/69 Blood Pressure Mean [Right Arm] 82 02 Sat by Pulse Oximetry 97 100 97 Oxygen Delivery Method Room Air Room Air 06/16/22 22:05 Temperature Temperature Source Pulse Rate 70 Pulse Rate [Right] Respiratory Rate Blood Pressure 90/61 L Blood Pressure [Right Arm] Blood Pressure Mean [Right Arm] 02 Sat by Pulse Oximetry 97 Oxygen Delivery Method Room Air - Lab Data Lab results reviewed: Yes: I reviewed the patient's lab results. Lab Results 06/16/22 19:50: WBC 11.6 H, RBC 4.37, Hgb 14.1, Hct 40.8, MCV 93.2, MCH 32.2 H, MCHC 34.6, RDW 12.2, Plt Count 429 H, MPV 9.2, Neut % (Auto) 56.0, Lymph % (Auto) 30.7, [place] % (Auto) 5.2, Eos % (Auto) 6.9, Baso % (Auto) 1.2, Neut # (Auto) 6.5, Lymph # (Auto) 3.6, [place] # (Auto) 0.6, Eos # (Auto) 0.8 H, Baso # (Auto) 0.1 06/16/22 19:50: Sodium 140, Potassium 3.0 L, Chloride 103, Carbon Dioxide 29, Anion Gap 11.0, BUN 6 L, Creatinine 0.60, Estimated Creat Clear 129, Estimated GFR 109, Est GFR ( Amer) 131, Glucose 130 H, Calcium 9.9, Troponin I < 0.01 06/16/22 19:50: SARS-CoV-2 (PCR) Not detected, Influenza A Untype (PCR) Not detected, Influenza Type B (PCR) Not detected 06/16/22 20:49: Urine Color Yellow, Urine Appearance Clear, Urine pH 6.0, Ur Specific [place] <= 1.005, Urine Protein Negative, Urine Glucose (UA) Negative, Urine Ketones Negative, Urine Blood 2+, Urine Nitrate Negative, Urine Bilirubin Negative, Urine Urobilinogen 0.2, Ur Leukocyte Esterase Negative, Urine RBC 5-10, Urine WBC 3-5, Ur Squamous Epith Cells 3-5, Urine Bacteria 1+ Result diagrams: 06/16/22 19:50 06/16/22 19:50 Orders (Tests/Meds): ED MEDICATIONS Generic Name Dose Route Start Last Admin Trade Name Freq PRN Reason Stop Dose Admin Sodium Chloride 1,000 mls @ 999 mls/hr 06/16/22 19:45 06/16/22 19:52 Sod Chlor 0.9% 1000ml Bag IV 06/16/22 20:45 999 mls/hr .Q1H1M EDITH Administration Discontinued Medications Generic Name Dose Route Start Last Admin Trade Name Freq PRN Reason Stop Dose Admin Nitroglycerin 0.4 mg 06/16/22 19:50 06/16/22 19:51 Nitroglycerin 0.4mg Sl Tablet SL 06/16/22 19:51 0.4 mg ONCE ONE Administration Nitroglycerin 1 gm 06/16/22 19:55 06/16/22 20:27 Nitroglycerin 1 Gm Ointment TD 06/16/22 19:56 1 gm ONCE ONE Administration Potassium Chloride 40 meq 06/16/22 20:41 06/16/22 21:33 Potassium Chloride 20meq Tab PO 06/16/22 20:42 40 meq ONCE ONE Administration ORDERS Category Date Time Status C-Reactive Protein Stat Lab 06/16/22 21:34 Ordered Erythrocyte Sedimentation Rate Stat Lab 06/16/22 21:34 Ordered Procalcitonin Stat Lab 06/16/22 21:34 Ordered Troponin I Q3H Lab 06/16/22 22:45 Ordered Troponin I Q3H Lab 06/17/22 01:45 Ordered - Radiology Data #1 Image(s): Chest Image Reviewed: Yes I have reviewed radiologist's interpretation Preliminary Findings: Normal/NAD - ECG Data Tracing #1 Normal Sinus Rhythm: Yes
--- NOTE | 2022-06-16 21:34 | PC.NURSE ---
pt didn't recieved ASA due to Rheumatic fever
[2022-06-16 21:35] VITALS: BP 99/64; PULSE 82; O2SAT 97
--- NOTE | 2022-06-16 22:02 | PC.NURSE ---
pt updated on POC. voiced no c/o
[2022-06-16 22:05] VITALS: BP 90/61; PULSE 70; O2SAT 97
--- NOTE | 2022-06-16 22:22 | PC.NURSE ---
supervisor quality control notified of pt admission and need for bed assignment.
[2022-06-16 22:24] VITALS: BMI 24.0
[2022-06-16 23:11] VITALS: BP 90/55; PULSE 74; RESP 19; TEMP 36.8; O2SAT 97
--- NOTE | 2022-06-16 23:17 | PC.NURSE ---
PT ARRIVED TO FLOOR VIA W/C FROM ED W/STAFF @ [id number]
[2022-06-16 23:22] LABS: Erythrocyte Sedimentation Rate 17 mm/hr (0-20)
[2022-06-16 23:28] VITALS: BP 92/58; PULSE 74; RESP 18; TEMP 37.5; O2SAT 98
[2022-06-16 23:52] LABS: C-Reactive Protein 3.9 mg/L (0-4)
[2022-06-17] VITALS: PULSE 74
[2022-06-17 00:05] LABS: Procalcitonin 0.033 ng/mL (0.0-2.0)
[2022-06-17 00:16] LABS: Troponin I < 0.01 ng/ml (0.00-0.034)
[2022-06-17 02:30] LABS: Troponin I < 0.01 ng/ml (0.00-0.034)
[2022-06-17 04:00] VITALS: BP 81/46; PULSE 62; PULSE 65; RESP 18; TEMP 36.8; O2SAT 94
--- NOTE | 2022-06-17 04:42 | PC.NURSE ---
Addendum entered by Belia Waldron RN 06/17/22 05:20: Soft pressures noted this am. Paged Mishel who ordered 250 ml bolus of NS. Original Note: Patient admitted to floor. Patient has had no complaints of chest pain, arm , or jaw pain since arriving to floor. Patient is NSR on tele. Patient has been npo since [place] awaiting cardio consult.
[2022-06-17 05:13] VITALS: BP 72/42; PULSE 69
[2022-06-17 05:59] VITALS: BP 82/42; PULSE 67
[2022-06-17 06:33] LABS: Basophils # 0.1 K/mm3 (0-0.2); Basophils % 0.6 % (0.1-2.0); Eosinophils # 0.6 K/mm3 (0.0-0.4); Eosinophils % 7.4 % (0.1-12.0); Hematocrit 32.6 % (37.0-47.0); Lymphocytes # 3.3 K/mm3 (0.7-4.5); Lymphocytes % 39.6 % (10-50); Mean Corpuscular HGB Conc 33.7 g/dL (31.8-35.4); Mean Corpuscular Hemoglobin 31.9 pg (27.0-31.2); Mean Corpuscular Volume 94.7 fl (81-99); Mean Platelet Volume 8.3 fl (7.4-10.4); Monocytes # 0.5 K/mm3 (0.1-1.0); Monocytes % 6.3 % (1.7-9.3); Neutrophils # 3.9 K/mm3 (1.8-7.8); Neutrophils % 46.2 % (37.0-80.0); Platelet Count 284 K/mm3 (142-424); Red Blood Count 3.44 M/mm3 (4.20-5.40); Red Cell Distribution Width 12.3 % (11.5-17.5); White Blood Count 8.4 K/mm3 (4.8-10.8)
[2022-06-17 06:43] LABS: Anion Gap 4.6 mEq/L (5-15); Blood Urea Nitrogen 4 mg/dl (7-17); Calcium 7.8 mg/dl (8.4-10.2); Carbon Dioxide 25 mmol/L (22.0-30.0); Chloride 112 mmol/L (98-107); Chol/HDL Ratio 4.5 (1-3.5); Cholesterol 144 mg/dl (140-200); Creatinine Clearance Estimated 131 mL/min (50-200); Estimated Glomerular Filt Rate 109 ml/min (>60); GFR (African American) 131 ML/MIN (>60); Glucose 94 mg/dl (74-100); HDL Cholesterol 32 mg/dl (40-60); Magnesium 1.7 mg/dl (1.6-2.3); Potassium 3.6 mmoL/L (3.5-5.1); Sodium 138 mmol/L (136-145); Triglycerides 64 mg/dl (30-150); VLDL Cholesterol 13 mg/dL (0-40)
[2022-06-17 06:54] LABS: Direct LDL Cholesterol 88.45 mg/dL (100-129)
--- NOTE | 2022-06-17 07:18 | P.CONPHA_ITS ---
[facility] Pharmacy VTE Monitoring - Patient Demographics Admission date: 06/17/22 Report Date: 06/17/22 Time: 07:18 Allergies/Adverse Reactions: Patient Allergies MORPHINE Allergy (Intermediate, Uncoded 11/09/21 11:56) SWELLING AND RASH Height: 1.7 m Weight: 69.541 kg Patient Problems: Current Active Problems Unstable angina pectoris (Acute) Tobacco use (Acute) Hx of rheumatic fever (Acute) - VTE Risk Labs: VTE Related Lab Results Hgb 11.0 g/dL (12.2-16.2) L D 06/17/22 06:25 Hct 32.6 % (37.0-47.0) L 06/17/22 06:25 Plt Count 284 K/mm3 (142-424) D 06/17/22 06:25 BUN 4 mg/dl (7-17) L D 06/17/22 06:25 Creatinine 0.60 mg/dl (0.52-1.04) 06/17/22 06:25 Estimated Creat Clear 131 mL/min (50-200) 06/17/22 06:25 Was VTE Risk Assessment Performed: Yes VTE Score: 1 VTE Risk Level: Very Low Risk Clinical Trial Participant: No - Prophylaxis VTE Prophylaxis Ordered?: Yes Types of VTE Prophylaxis: TEDS Knee High
[2022-06-17 08:00] VITALS: BP 91/52; PULSE 66; PULSE 68; RESP 18; TEMP 36.8; O2SAT 98
--- NOTE | 2022-06-17 09:08 | HMH.CNCARD ---
History of Present Illness Consult date: 06/17/22 Requesting physician: Frankie Cleveland Consult reason: chest pain Chief complaint: chest pain Additional Medical History:: Current smoker History of present illness: 46 year old female with above past medical hx presented to ED last night with complaint of left sided chest pain. Reports has had some intermittent chest pain x a few weeks, started again yesterday and thought better get it checked out. reports didnt last long. no associated soa or nausea. describess pain and pressure. Serial trops in ER negative, EKG negative for ischemic changes. pain free currently. [facility] History Medical History: Reports:: Anxiety, Depression, Heart Murmur Denies:: Cancer, Diabetes Mellitus Type 1, Diabetes Mellitus Type 2, MRSA *Have you ever received a pneumonia vaccine?: No *Have you received a flu vaccine this season?: No Laterality Cases: Bilateral: Tonsillectomy Other Surgeries: Yes: Cholecystectomy, Tubal Ligation Amputation: No Fractures: No - *Social History Last grade of school completed: Some college Smoking Status: Current every day smoker Tobacco Type: cigarettes # Packs/Day (cigarettes): 1 #Yrs smoked (if former smoker): 15 Alcohol Intake: never Substance Use Type: denies use *Occupational Status:: employed Housing: house *Travel in the last 8 weeks: None - Psychiatric History Pschychiatric History:: Reports:: Anxiety, Depression Family Hx:: Heart Attack Meds Home Medications Medication Instructions Recorded Confirmed Type Cetirizine HCl 10 mg PO DAILY 07/08/20 06/16/22 History diphenhydrAMINE HCL [Benadryl 25 mg PO Q8 PRN 3 Days #9 tab 10/19/21 06/16/22 Rx Allergy] [id number] 18 1 tab PO DAILY tab 01/31/22 06/16/22 History mg-FA 400 mcg-vit K 25 mcg tablet Famotidine [Pepcid] 40 mg PO HS 06/17/22 06/17/22 History Allergies Allergy/AdvReac Type Severity Reaction Status Date / Time morphine Allergy Rash Verified 06/17/22 07:21 Exam Vital signs and Labs for Last 24 Hours: Temp Pulse Resp BP Pulse Ox 98.2 F 68 18 91/52 L 98 06/17/22 08:00 06/17/22 08:00 06/17/22 08:00 06/17/22 08:00 06/17/22 08:00 Laboratory Results - last 24 hr 06/16/22 19:50: WBC 11.6 H, RBC 4.37, Hgb 14.1, Hct 40.8, MCV 93.2, MCH 32.2 H, MCHC 34.6, RDW 12.2, Plt Count 429 H, MPV 9.2, Neut % (Auto) 56.0, Lymph % (Auto) 30.7, [place] % (Auto) 5.2, Eos % (Auto) 6.9, Baso % (Auto) 1.2, Neut # (Auto) 6.5, Lymph # (Auto) 3.6, [place] # (Auto) 0.6, Eos # (Auto) 0.8 H, Baso # (Auto) 0.1 06/16/22 19:50: Sodium 140, Potassium 3.0 L, Chloride 103, Carbon Dioxide 29, Anion Gap 11.0, BUN 6 L, Creatinine 0.60, Estimated Creat Clear 129, Estimated GFR 109, Est GFR ( Amer) 131, Glucose 130 H, Calcium 9.9, Troponin I < 0.01 06/16/22 19:50: SARS-CoV-2 (PCR) Not detected, Influenza A Untype (PCR) Not detected, Influenza Type B (PCR) Not detected 06/16/22 19:50: ESR 17 06/16/22 20:49: Urine Color Yellow, Urine Appearance Clear, Urine pH 6.0, Ur Specific [place] <= 1.005, Urine Protein Negative, Urine Glucose (UA) Negative, Urine Ketones Negative, Urine Blood 2+, Urine Nitrate Negative, Urine Bilirubin Negative, Urine Urobilinogen 0.2, Ur Leukocyte Esterase Negative, Urine RBC 5-10, Urine WBC 3-5, Ur Squamous Epith Cells 3-5, Urine Bacteria 1+ 06/16/22 22:52: Troponin I < 0.01 06/16/22 22:52: C-Reactive Protein 3.9, Procalcitonin 0.033 06/17/22 01:50: Troponin I < 0.01 06/17/22 06:25: WBC 8.4 D, RBC 3.44 L, Hgb 11.0 L D, Hct 32.6 L, MCV 94.7, MCH 31.9 H, MCHC 33.7, RDW 12.3, Plt Count 284 D, MPV 8.3, Neut % (Auto) 46.2, Lymph % (Auto) 39.6, [place] % (Auto) 6.3, Eos % (Auto) 7.4, Baso % (Auto) 0.6, Neut # (Auto) 3.9, Lymph # (Auto) 3.3, [place] # (Auto) 0.5, Eos # (Auto) 0.6 H, Baso # (Auto) 0.1 06/17/22 06:25: Sodium 138, Potassium 3.6, Chloride 112 H, Carbon Dioxide 25, Anion Gap 4.6 L, BUN 4 L D, Creatinine 0.60, Estimated Creat Clear 131, Estimated GFR 109, Est GFR ( Amer) 1
--- NOTE | 2022-06-17 09:28 | HMH.HPDC ---
General - General Admission date:: 06/16/22 Discharge date: 06/17/22 *Admission Date: 06/17/22 *Chief complaint: Chest Pain *History of present illness: 46-year-old female patient presents to the [facility] emergency department with reports of left-sided chest pain. She reports she has been having chest pain off and on for several weeks started yesterday and radiated to left neck with a large amount of pressure in left arm. She reports she was traveling in a car and admits shortness of breath but denies diaphoresis with chest pain. She also has a history of rheumatic heart disease. Chest x-ray reveals no acute findings Cardiology consulted [facility] History I have reviewed the patient's past medical history: Yes Medical History: Reports:: Anxiety, Depression, Heart Murmur Denies:: Cancer, Diabetes Mellitus Type 1, Diabetes Mellitus Type 2, MRSA *Have you ever received a pneumonia vaccine?: No *Have you received a flu vaccine this season?: No Laterality Cases: Bilateral: Tonsillectomy Other Surgeries: Yes: Cholecystectomy, Tubal Ligation Amputation: No Fractures: No - *Social History Last grade of school completed: Some college Smoking Status: Current every day smoker Tobacco Type: cigarettes # Packs/Day (cigarettes): 1 #Yrs smoked (if former smoker): 15 Alcohol Intake: never Substance Use Type: denies use *Occupational Status:: employed Housing: house *Travel in the last 8 weeks: None - Psychiatric History Pschychiatric History:: Reports:: Anxiety, Depression Family Hx:: Heart Attack Review of Systems - Review of Systems Review of systems:: pertinent systems reviewed and negative unless documented below - Constitutional Reports fatigue, Denies body ache(s), Denies chills - Eyes Denies blurry vision, Denies double vision - ENT Denies abnormal hearing, Denies difficulty swallowing, Denies headache(s) - *Cardiovascular Reports chest pain, Reports chest pain at rest, Reports shortness of breath - *Respiratory Reports shortness of breath - *Gastrointestinal Denies abdominal pain, Denies change in stools, Denies nausea - *Musculoskeletal Denies joint pain, Denies body aches - Integumentary/Breasts Denies yellowing of the skin, Denies non-healing lesions - *Neurologic Denies abnormal walking, Denies confusion, Denies dizziness - Psychiatric Denies anxiety, Denies change in appetite, Denies confusion - Endocrine Denies cold intolerance, Denies increased thirst - Hematologic/Lymphatic Denies easy bleeding, Denies easy bruising - Allergic/Immunologic Denies GI upset with certain foods, Denies throat swelling Exam Vital signs and Labs for Last 24 Hours: Temp Pulse Resp BP Pulse Ox 98.2 F 68 18 91/52 L 98 06/17/22 08:00 06/17/22 08:00 06/17/22 08:00 06/17/22 08:00 06/17/22 08:00 Laboratory Results - last 24 hr 06/16/22 19:50: WBC 11.6 H, RBC 4.37, Hgb 14.1, Hct 40.8, MCV 93.2, MCH 32.2 H, MCHC 34.6, RDW 12.2, Plt Count 429 H, MPV 9.2, Neut % (Auto) 56.0, Lymph % (Auto) 30.7, [place] % (Auto) 5.2, Eos % (Auto) 6.9, Baso % (Auto) 1.2, Neut # (Auto) 6.5, Lymph # (Auto) 3.6, [place] # (Auto) 0.6, Eos # (Auto) 0.8 H, Baso # (Auto) 0.1 06/16/22 19:50: Sodium 140, Potassium 3.0 L, Chloride 103, Carbon Dioxide 29, Anion Gap 11.0, BUN 6 L, Creatinine 0.60, Estimated Creat Clear 129, Estimated GFR 109, Est GFR ( Amer) 131, Glucose 130 H, Calcium 9.9, Troponin I < 0.01 06/16/22 19:50: SARS-CoV-2 (PCR) Not detected, Influenza A Untype (PCR) Not detected, Influenza Type B (PCR) Not detected 06/16/22 19:50: ESR 17 06/16/22 20:49: Urine Color Yellow, Urine Appearance Clear, Urine pH 6.0, Ur Specific [place] <= 1.005, Urine Protein Negative, Urine Glucose (UA) Negative, Urine Ketones Negative, Urine Blood 2+, Urine Nitrate Negative, Urine Bilirubin Negative, Urine Urobilinogen 0.2, Ur Leukocyte Esterase Negative, Urine RBC 5-10, Urine WBC 3-5, Ur Squamous Epith Cells 3-5
--- NOTE | 2022-06-17 11:57 | PC.NURSE ---
Pt called carloz.
--- NOTE | 2022-06-20 15:30 | CARE MANAGER ---
Spoke with patient for post-discharge phone interview, patient states that she feels better but is tired. Patient is aware of follow-up appointments, no issues noted.
== END 2022-06-17 12:36 | disposition home or self-care (01) ==
LOC: ER 22:13 → 2ND 22:43
PROVIDERS: Admitting Provider Emergency Medicine; Emergency Provider Emergency Medicine; PCP Nurse Practitioner Family; Visit Provider Emergency Medicine
DX: R07.9 Chest pain, unspecified (principal); I25.110 Atherosclerotic heart disease of native coronary artery with unstable angina pectoris; F17.210 Nicotine dependence, cigarettes, uncomplicated; Z86.79 Personal history of other diseases of the circulatory system; Z79.899 Other long term (current) drug therapy
CPT/HCPCS: 36415; 71046; 80048; 80061; 81001; 83735; 84145; 84484; 85025; 85651; 86140; 93005; 99285; C9803; G0378; U0003; U0005

== ENCOUNTER 2022-06-23 21:00 | Emergency (ER) | payer OTHER, SELFPAY ==
[2022-06-23 21:45] VITALS: BP 00/00; PULSE 0; RESP 0; TEMP -17.7; TEMP 0
--- NOTE | 2022-06-23 21:48 | PC.NURSE ---
Patient left from lobby without being seen. Per registration, patient was here for edema and swelling. Patient left for unknown reasons. Due to patient already being registered by registration patient had to be discharged as left without being seen, however, patient was never technically in the ER due to lack of rooms.
== END 2022-06-23 21:48 | disposition left against medical advice (07) ==
LOC: ER 21:09
PROVIDERS: Emergency Provider Emergency Medicine; PCP Nurse Practitioner Family
DX: Z53.21 Procedure and treatment not carried out due to patient leaving prior to being seen by health care provider (principal)

== ENCOUNTER → 2022-07-05 07:16 | Outpatient (CLI) | payer SELFPAY | PROVIDERS: PCP Nurse Practitioner Family; Visit Provider Internal Medicine Cardiovascular Disease | DX: R07.9 Chest pain, unspecified (principal) ==

== ENCOUNTER → 2022-07-05 07:18 | Outpatient (CLI) | payer BC, OTHER, SELFPAY ==
--- NOTE | 2022-07-05 | CA_ITS ---
APPROVED REPORT Exam: Exercise Treadmill Technologist: Nazia Bella, Ht: 5 ft 7 in Wt: 159 lbs BSA: 1.83 m2 HR: 79 bpm BP: 98/66 mmHg Rhythm: NSR, NS ST abn in lead 3 Medical History Medications: Famotidine,,,,, DiPHENHYDRAMINE,,,,, CetIRIZINE,,,,, ONE A DAY Vitamins,,,,, Cardiac Risk Factors: Smoking Stress Test Details Test: Samuel HR Resting HR: 99 bpm Max Heart Rate (APMHR): 176.480526 bpm Max HR Achieved: 181 bpm Target HR (85% APMHR): 149.352721 bpm % of APMHR: 102.84 Recovery HR: 157 bpm BP Resting BP: 97/69 mmHg Max BP: 135/75 mmHg Recovery BP: 145.0/79.0 mmHg ECG Resting ECG: NSR, NS ST abn in lead 3 Clinical Exercise duration: 07:01 min Highest Stage Achieved: Exercise capacity: 10.1 METs Stress ECG Conclusion During samuel protocol pt exercised total of 7:00 minutes into stage 3. No CP noted. No arrhythmias noted. NS T wave changes in leads 3 and aVF. Within normal GXT. Myoview images reported separately. Test Summary RECOVERY 05:00 0.0 0.0 105 . 119/ 77 . . REST . . . . . . . Standing REST 04:01 0.0 0.0 99 . 97/ 69 . . Stage 1 01:00 10.0 1.7 120 . . . . Stage 1 02:00 10.0 1.7 133 . . . . Stage 1 03:00 10.0 1.7 150 . 105/ 70 . . Stage 2 01:00 12.0 2.5 155 . . . . Stage 2 02:00 12.0 2.5 161 . . . . Stage 2 03:00 12.0 2.5 169 . . . . Stage 3 01:00 14.0 3.4 178 . . . . Stage 3 01:01 14.0 3.4 178 . . . Stop exercise at 07:01 RECOVERY 01:00 0.0 0.0 169 . . . . RECOVERY 02:00 0.0 0.0 132 . . . . RECOVERY 03:00 0.0 0.0 121 . 135/ 75 . . RECOVERY 04:00 0.0 0.0 106 . 135/ 75 . . RECOVERY 05:00 0.0 0.0 105 . 119/ 77 . . RECOVERY 05:21 0.0 0.0 100 . 119/ 77 . . Electronically signed by : Javi Reese MD 07/06/2022 06:31:01
--- NOTE | 2022-07-05 07:19 | NM_ITS ---
APPROVED REPORT Exam: Nuclear Stress Test Indication: Chest pain, SOB, Abnormal EKG, Former tobacco use, Family history Patient Location: Outpatient Stress Tech: Nazia VELÁSQUEZ Tech:Cesilia Maya, ARRT, RT (R)(N) Ht: 5 ft 7 in Wt: 155 lbs Bra Size: D HR: 99 bpm BP: 97/69 mmHg BSA: 1.81 m2 TID: 1.12 BMI: 24.2 History: Chest pain, SOB, Abnormal EKG, Former tobacco use, Family history Procedure: Patient exercised on Tera protocol 7:01 minutes and sec, resting heart rate 99 bpm, resting blood pressure 97/69 mmHg, with exercise maximum heart rate achived was 181 bpm which is 103 % of the maximum predicted heart rate and blood pressure was 135/75 mmHg. Test was stopped due to SOB. Patient denied any complaint of chest pain. Patient has good exercise capacity, achieved 10.1 METs of workload on treadmill, the blood pressure response to exercise was Adequate. Electrocardiogram Resting electrocardiogram shows sinus rhythm, with exercise there is less than 1.[address] segment depression noted from the baseline EKG. The EKG portion of the exercise Myoview is negative for ischemia. Cardiac Stress and Resting SPECT Images: Cardiac Stress and Resting SPECT images were obtained using technetium 99m Myoview 28.9 mCi stress and 10.76 mCi at rest. Gated SPECT for analysis of segmental wall motion and calculation of the ejection fraction also done. Prone images were also obtained. Cardiac stress and rest SPECT images show uniform myocardial activity without segmental perfusion abnormality, computer derived ejection fraction 51% with no regional wall motion abnormality, right ventricle is normal size and contractility. Conclusion: 1. The EKG portion of the exercise Myoview is negative for ischemia, patient has good exercise capacity achieved 10.1 METs of workload on treadmill, the blood pressure response to exercise was adequate, there was no exercise-induced chest discomfort. 2. No scintigraphic evidence of reversible ischemia seen, computer derived ejection fraction 51% with no regional wall motion abnormality, right ventricle is normal size and contractility. 3. Normal exercise Myoview study. Electronically signed by : Javi Reese MD 07/06/2022 06:35:02
--- NOTE | 2022-07-05 08:02 | CA_ITS ---
APPROVED REPORT EXAM: Comprehensive 2D, Doppler, and color-flow Echocardiogram Consultant Internship: Stephanie Trinidad CRT Ht: 5 ft 7 in Wt: 159lbs BSA: 1.83 BP: 110/72 mmHg Indications: Abnormal ECG, Chest Pain, Murmur, Palpitations 2D Dimensions LVOT 2.02 cm (M/F) 1.5-2.5 LA Volume 35.40 mL LA Volume Index 19.30 mL/m2 (M/F) 16-34 M-Mode Dimensions RVDd 2.73 cm (0.9-2.6) LA Diam 2.68 cm (1.9-4.0) LVDd 4.44 cm (3.5-5.7) Ao Diam 3.60 cm (2.0-3.7) LVDs 3.08 cm (3.5-5.7) IVSd 1.16 cm (0.6-1.1) PWd 0.96 cm (0.6-1.1) EF (Teich) 58.40% FS 30.60% EDV (Teich) 89.60 mL TAPSE 1.57 (<1.7) ESV (Teich) 37.30 mL LV Diastology E Decel Time 157.00 (160-240 msec) E/A Ratio 1.18 MED E' 9.40 (< 7 cm/sec) MED A' 7.10 cm/s E'/MED E' Ratio 7.67 (>14) LAT E' 11.60 (<10 cm/sec) LAT A' 7.70 cm/s E/LAT E' Ratio 6.22 (>14) Aortic Valve AO Peak GR. 5.50 mmHg Mitral Valve MV E Max Jhonathan. 72.00 (40-130 cm/s) MV A Velocity 61.00 (40-130 cm/s) E/A Ratio 1.18 MV Decel. Time 157.00 (160-240 ms) MV PHT 46.00 ms Pulmonary Valve PV Peak Velocity 137.00 (50-150 cm/s) Tricuspid Valve TR P. Velocity 226.00 cm/s RAP Estimate 10.00 mmHg RVSP 30.50 mmHg Left Ventricle Left atrium normal size, left ventricle is normal size preserved left ventricular systolic function, estimated ejection fraction 55% with no regional wall motion abnormality, diastolic parameters are within normal range. Right Ventricle Right atrium and right ventricle are normal size and contractility. Aortic Valve Aortic valve is grossly normal there is no aortic stenosis or aortic insufficiency. Mitral Valve Mitral valve grossly normal, there is no significant mitral regurgitation seen. Tricuspid Valve Tricuspid valve grossly normal, there is no significant tricuspid regurgitation seen. Pulmonic Valve Pulmonic valve is poorly visualized. Great Vessels Aortic root is normal size. Inferior vena cava is normal size with normal spectral collapse. Pericardium No significant pericardial effusion noted. Conclusion 1. Normal left ventricular size preserved left ventricular systolic function, estimated ejection fraction 55% with no regional wall motion abnormality, diastolic parameters are within normal range. 2. No significant pericardial effusion noted. 3. Inferior vena cava is normal size with normal inspiratory collapse. Electronically signed by : Javi Reese MD 07/06/2022 06:15:43
--- NOTE | 2022-07-05 09:30 | HMH.ITSHM ---
Current Home Medications as stated by this patient Chula Tolentino or instruments sales representative. []OMEPRAZOLE MULTIVITAMIN FAMOTIDINE CETIRIZINE
== END ==
PROVIDERS: PCP Nurse Practitioner Family; Visit Provider Internal Medicine Cardiovascular Disease
DX: R06.09 Other forms of dyspnea (principal); R00.2 Palpitations; R07.9 Chest pain, unspecified; R94.31 Abnormal electrocardiogram [ECG] [EKG]; Z72.0 Tobacco use; Z86.79 Personal history of other diseases of the circulatory system
CPT/HCPCS: 78452; 93017; 93306; A9502

== ENCOUNTER 2022-10-22 01:20 | Emergency (ER) | payer OTHER, SELFPAY ==
[2022-10-22 01:21] VITALS: BP 100/60; PULSE 130; RESP 16; TEMP 37.9; O2SAT 94; BMI 25.8
--- NOTE | 2022-10-22 01:27 | HMH.EDGENADL ---
Discharge Plan Disposition Patient Disposition: Home, Self-Care Condition: Fair Prescriptions Prescriptions: No Action One-A-Day Women's Complete 18 mg-400 mcg- 25 mcg tablet 1 tab PO DAILY omeprazole 40 mg capsule,delayed release(DR/EC) 40 mg PO QDAY Qty: 30 1RF Rx Instructions: swallow whole; do not crush, chew, dissolve, or cut/break diphenhydramine HCl 25 MG tablet 25 mg PO Q8 PRN (Reason: Rash) 3 Days Qty: 9 0RF cetirizine 10 MG tablet 10 mg PO DAILY famotidine 40 MG tablet 40 mg PO HS Referrals Follow up/Referrals: Beba Infante APRN [Primary Care Provider] - See instructions Activity Restrictions/Add. Instructions Additional Instructions/Restrictions: You have been evaluated for cough, body aches, generalized malaise. You have been diagnosed with COVID-19. Please monitor your symptoms closely. Take Tylenol for aches, pains, fever. Try to stay hydrated. [place] food. Follow-up with your primary care doctor in 1 to 2 days for symptom recheck. Return to the emergency department at once for any new or worsening symptoms, shortness of breath, cough, inability to tolerate oral intake, any other concerns Clinical Impressions Clinical Impression: COVID-19 Instructions Patient Instructions: DI for COVID-19 (Suspected or Confirmed ), How to Care for Someone with COVID-19 Discharge ED Provider: Gemini Sheppard General Adult HPI General Chief complaint: Upper Respiratory Infection Stated complaint: Fever,nausea,weak,body aches Time Seen by Provider: 10/22/22 01:23 History of Present Illness HPI narrative: 46-year-old female presenting to the emergency department with body aches, sore throat, headache, generalized malaise. Symptoms started 2 days ago as intermittent, generalized body aches. Today, symptoms are much worse. She is a headache that is described as constant and throbbing. Located on both temples. Does not radiate. Feels like all of her muscles hurt, shoulders, arms, legs, back. She is unable to find a position of comfort. Could not fall asleep. Tried taking Benadryl without relief. She has developed fevers, chills, sore throat. Feels dehydrated. Has not had much appetite. Took Advil about 2 hours ago. Denies known sick contacts. No chest pain, shortness of breath, abdominal pain, rashes on her skin Related Data Home Medications Medication Instructions Recorded Confirmed cetirizine 10 mg tablet 10 mg PO DAILY Allergy symptoms 07/08/20 06/24/22 [id number]-hnpiien-fazj-iron 18 1 tab PO DAILY Supplement 01/31/22 06/24/22 mg-FA 400 mcg-vit K 25 mcg tablet (One-A-Day Women's Complete) famotidine 40 mg tablet 40 mg PO HS acid reflux 06/17/22 06/24/22 Previous Rx's Medication Instructions Recorded diphenhydramine HCl 25 mg tablet 25 mg PO Q8 PRN Rash 3 days #9 tabs 10/19/21 omeprazole 40 mg capsule,delayed 40 mg PO QDAY #30 caps 06/24/22 release Allergies Allergy/AdvReac Type Severity Reaction Status Date / Time morphine Allergy Rash Verified 06/24/22 14:48 [facility] Medical History (Updated 10/22/22 @ 03:09 by Gemini Sheppard DO) Chest pain Dyspnea Hx of rheumatic fever Palpitations Tobacco dependence syndrome Social History Smoking Status: Current every day smoker tobacco type: cigarettes packs per day: 1 alcohol intake: never substance use type: denies use current occupational status: employed Travel in the last 8 weeks: Inside the [place] housing: house caffeine: Yes ROS Obtained: Yes All systems reviewed & no additional complaints except as documented Constitutional Constitutional: Reports body ache, Reports fatigue, Reports fever(s), Reports headache(s), Reports malaise and Reports weakness Eyes Eyes: Denies blind spots and Denies blurry vision ENT Ears, Nose, Mouth, and Throat: Reports dry mouth, Reports headache(s), Reports nasal congestion, Denies neck pain and Reports sore throat Cardiovascular
[2022-10-22 01:36] LABS: Influenza A, PCR Not Detected (NotDetected); Influenza B, PCR Not Detected (NotDetected)
[2022-10-22 02:08] VITALS: PULSE 110; O2SAT 98
[2022-10-22 02:11] LABS: Basophils % 0.4 % (0.1-2.0); Eosinophils # 0.5 K/mm3 (0.0-0.4); Eosinophils % 5.9 % (0.1-12.0); Hematocrit 38.8 % (37.0-47.0); Hemoglobin 12.9 g/dL (12.2-16.2); Lymphocytes # 0.4 K/mm3 (0.7-4.5); Lymphocytes % 4.8 % (10-50); Mean Corpuscular HGB Conc 33.3 g/dL (31.8-35.4); Mean Corpuscular Hemoglobin 31.2 pg (27.0-31.2); Mean Corpuscular Volume 93.7 fl (81-99); Mean Platelet Volume 8.8 fl (7.4-10.4); Monocytes # 0.5 K/mm3 (0.1-1.0); Monocytes % 6.7 % (1.7-9.3); Neutrophils # 6.5 K/mm3 (1.8-7.8); Neutrophils % 82.1 % (37.0-80.0); Platelet Count 326 K/mm3 (142-424); Red Blood Count 4.14 M/mm3 (4.20-5.40); Red Cell Distribution Width 13.1 % (11.5-17.5); White Blood Count 7.9 K/mm3 (4.8-10.8)
[2022-10-22 02:15] VITALS: PULSE 108; O2SAT 97
[2022-10-22 02:18] LABS: Chloride 102 mmol/L (98-107)
[2022-10-22 02:19] LABS: Potassium 3.8 mmoL/L (3.5-5.1); Sodium 135 mmol/L (136-145)
[2022-10-22 02:20] LABS: HCG Qualitative, Serum Negative (Negative)
[2022-10-22 02:21] LABS: Alanine Aminotransferase 25 U/L (12-78); Albumin Level 4.7 g/dl (3.5-5.0); Albumin/Globulin Ratio 1.4 (1.1-1.8); Alkaline Phosphatase 62 U/L (38-126); Aspartate Amino Transferase 32 U/L (14-36); Bilirubin,Total 0.3 mg/dl (0.2-1.3); Blood Urea Nitrogen 6 mg/dl (7-17); Creatinine Clearance Estimated 121 mL/min (50-200); Estimated Glomerular Filt Rate 91 ml/min (>60); GFR (African American) 110 ML/MIN (>60); Globulin 3.3 g/dL (1.3-3.2)
[2022-10-22 02:22] LABS: Anion Gap 11.8 mEq/L (5-15); Calcium 10.2 mg/dl (8.4-10.2); Carbon Dioxide 25 mmol/L (22.0-30.0); Glucose 98 mg/dl (74-100)
[2022-10-22 02:29] LABS: Coronavirus 19, PCR Detected (NotDetected)
[2022-10-22 02:30] VITALS: BP 83/45; PULSE 106; O2SAT 96; O2SAT 98
--- NOTE | 2022-10-22 02:35 | XR_ITS ---
PROCEDURE INFORMATION: Exam: XR Chest Exam date and time: 10/22/2022 2:56 AM Age: 46 years old Clinical indication: Abnormal findings; Other: Covid +; Cough; Additional info: Cough, covid+ TECHNIQUE: Imaging protocol: Radiologic exam of the chest. Views: 1 view. COMPARISON: CR XR CHEST 2V 06/16/2022 7:36 PM FINDINGS: Lungs: No focal consolidation. Subtle right basilar airspace disease versus atelectasis. Pleural spaces: No pleural effusion. No pneumothorax. Heart/Mediastinum: No acute findings or cardiomegaly. Bones/joints: No acute findings. IMPRESSION: Subtle right basilar airspace disease versus atelectasis.
[2022-10-22 03:25] VITALS: BP 109/74; PULSE 103; RESP 16; TEMP 37.1; O2SAT 98
[2022-10-22 03:29] VITALS: BP 109/74; PULSE 101; RESP 18; TEMP 36.6; O2SAT 99
== END 2022-10-22 03:26 | disposition home or self-care (01) ==
PROVIDERS: Emergency Provider Emergency Medicine; PCP Nurse Practitioner Family
DX: U07.1 COVID-19 (principal)
CPT/HCPCS: 71045; 80053; 84703; 85025; 96365; 99284; C9803; U0003; U0005

== ENCOUNTER 2023-01-17 14:56 | Emergency (ER) | payer OTHER, SELFPAY ==
[2023-01-17 15:08] VITALS: BP 126/65; PULSE 85; RESP 15; TEMP 36.6; O2SAT 99; BMI 25.8
--- NOTE | 2023-01-17 15:28 | EXP.UTC ---
Discharge Plan Disposition Patient Disposition: Left Against Medical Advice Condition: Fair Prescriptions Prescriptions: No Action One-A-Day Women's Complete 18 mg-400 mcg- 25 mcg tablet 1 tab PO DAILY omeprazole 40 mg capsule,delayed release(DR/EC) 40 mg PO QDAY Qty: 30 1RF Rx Instructions: swallow whole; do not crush, chew, dissolve, or cut/break diphenhydramine HCl 25 MG tablet 25 mg PO Q8 PRN (Reason: Rash) 3 Days Qty: 9 0RF cetirizine 10 MG tablet 10 mg PO DAILY famotidine 40 MG tablet 40 mg PO HS Referrals Follow up/Referrals: Varsha Haley MD [Primary Care Provider] - See instructions Clinical Impressions Clinical Impression: Left against medical advice Discharge ED Provider: Yan Ríos [facility] General Stated complaint: Back pain no accident Mode of Arrival: Wheelchair Source of Information: Patient Time Seen by Provider: 01/17/23 15:28 Description of Symptoms (Recalled from Triage Doc. by RN): pt comes in with c/o back pain. pt has hx of fibromyalgia. pt states she has had this pain before. Related Data Home Medications Medication Instructions Recorded Confirmed cetirizine 10 mg tablet 10 mg PO DAILY Allergy symptoms 07/08/20 06/24/22 viojubde-uimhqia-sezf-iron 18 1 tab PO DAILY Supplement 01/31/22 06/24/22 mg-FA 400 mcg-vit K 25 mcg tablet (One-A-Day Women's Complete) famotidine 40 mg tablet 40 mg PO HS acid reflux 06/17/22 06/24/22 Previous Rx's Medication Instructions Recorded diphenhydramine HCl 25 mg tablet 25 mg PO Q8 PRN Rash 3 days #9 tabs 10/19/21 omeprazole 40 mg capsule,delayed 40 mg PO QDAY #30 caps 06/24/22 release Allergies Allergy/AdvReac Type Severity Reaction Status Date / Time morphine Allergy Rash Verified 01/17/23 15:40 [facility] Disclaimer: The information contained in this section may have been updated after the patient was seen, as this information can be updated by other users. Medical History (Updated 01/17/23 @ 16:35 by Diana Robert RN) Chest pain Dyspnea Hx of rheumatic fever Palpitations Tobacco dependence syndrome Social History Smoking Status: Current every day smoker tobacco type: cigarettes packs per day: 1 alcohol intake: never substance use type: denies use current occupational status: employed Travel in the last 8 weeks: [place] the [place] housing: house caffeine: Yes ROS Obtained: Yes All systems reviewed & no additional complaints except as documented Constitutional Constitutional: Denies chills and Denies fever(s) Eyes Eyes: Denies eye discharge ENT Ears, Nose, Mouth, and Throat: Denies dizziness, Denies otalgia and Denies sore throat Cardiovascular Cardiovascular: Denies chest pain Respiratory Respiratory: Denies shortness of breath, Denies chest congestion, Denies cough, Denies stridor and Denies wheezing Gastrointestinal Gastrointestingal: Reports abdominal pain, nausea and vomiting; Denies constipation or diarrhea Genitourinary Female Genitourinary: Denies dysuria, Denies urinary frequency, Denies urinary incontinence, Denies urinary hesitancy and Denies urinary urgency Musculoskeletal Musculoskeletal: Reports system reviewed and no additional complaints, except as documented and Denies arthralgias Integumentary/Breasts Skin/Breast: Denies rash Neurologic Neurologic: Denies dizziness and Denies paresthesias Allergic/Immunologic Allergic/Immunologic: Denies wheezing Physical Exam General General appearance: alert and in no apparent distress Head Head exam: atraumatic and normocephalic Eye Eye exam: Present normal appearance, PERRL and EOMI ENT ENT exam: Present normal exam, normal oropharynx, mucous membranes moist, TM's normal bilaterally and normal external ear exam Neck Neck exam: Present normal inspection, full ROM and trachea midline; Absent tenderness, meningismus or lymphadenopathy Chest Chest ins
[2023-01-17 15:35] VITALS: BP 126/65; PULSE 85; RESP 20; TEMP 36.6; O2SAT 99; BMI 25.9
[2023-01-17 16:34] VITALS: BP 126/65; PULSE 85; RESP 20; TEMP 36.6; O2SAT 99
== END 2023-01-17 16:32 | disposition left against medical advice (07) ==
LOC: UTC 15:45
PROVIDERS: Emergency Provider Nurse Practitioner Family; PCP Family Medicine
DX: M54.9 Dorsalgia, unspecified (principal); R10.9 Unspecified abdominal pain; Z53.29 Procedure and treatment not carried out because of patient's decision for other reasons; Z87.39 Personal history of other diseases of the musculoskeletal system and connective tissue
CPT/HCPCS: 99212; G0463

== ENCOUNTER 2023-10-04 17:51 | Emergency (ER) | payer OTHER, SELFPAY ==
[2023-10-04 17:52] VITALS: BP 114/73; PULSE 93; RESP 16; TEMP 36.6; O2SAT 100; BMI 22.7
--- NOTE | 2023-10-04 18:11 | XR_ITS ---
PROCEDURE INFORMATION: Exam: XR Chest Exam date and time: 10/04/2023 6:39 PM Age: 47 years old Clinical indication: Shortness of breath; Patient HX: Smoker; Additional info: SOA, valenzuela, swelling TECHNIQUE: Imaging protocol: Radiologic exam of the chest. Views: 2 views. COMPARISON: CR XR CHEST PORTABLE 10/22/2022 2:56 AM FINDINGS: Lungs: Possible granulomatous changes. No consolidation. Pleural spaces: Unremarkable. No pleural effusion. No pneumothorax. Heart/Mediastinum: Unremarkable. No cardiomegaly. Bones/joints: Unremarkable. Intraperitoneal space: Right upper quadrant surgical clips. IMPRESSION: No acute pulmonary findings.
--- NOTE | 2023-10-04 18:40 | ECG_ITS ---
APPROVED REPORT Exam: Resting ECG HR:74 bpm ECG Measurements Heart Rate 74 AXES WA 133 P 85 QRSd 89 QRS 77 QT 384 T 79 QTc 411 Conclusion SINUS RHYTHM NORMAL ECG UNCONFIRMED REPORT Electronically signed by : Bon Knight MD 10/05/2023 17:32:01
[2023-10-04 18:52] LABS: Chloride 105 mmol/L (98-107); Potassium 3.6 mmoL/L (3.5-5.1); Sodium 141 mmol/L (136-145)
[2023-10-04 18:55] LABS: Alanine Aminotransferase 40 U/L (12-78); Albumin Level 5.2 g/dl (3.5-5.0); Albumin/Globulin Ratio 1.3 (1.1-1.8); Alkaline Phosphatase 71 U/L (38-126); Anion Gap 13.6 mEq/L (5-15); Aspartate Amino Transferase 43 U/L (14-36); Bilirubin,Total 0.8 mg/dl (0.2-1.3); Blood Urea Nitrogen 3 mg/dl (7-17); Calcium 9.7 mg/dl (8.4-10.2); Carbon Dioxide 26 mmol/L (22.0-30.0); Creatinine Clearance Estimated 105 mL/min (50-200); Estimated Glomerular Filt Rate 90 ml/min (>60); GFR (African American) 109 ML/MIN (>60); Globulin 3.9 g/dL (1.3-3.2); Glucose 56 mg/dl (74-100); Total Protein,Serum 9.1 g/dl (6.3-8.2)
[2023-10-04 19:13] LABS: T4 (Thyroxine) 11.2 ug/dl (5.53-11.0)
[2023-10-04 19:26] LABS: Thyroid Stimulating Hormone 1.34 uIU/mL (0.465-4.68)
[2023-10-04 20:12] LABS: Basophils # 0.1 K/mm3 (0-0.2); Basophils % 0.8 % (0.1-2.0); Eosinophils # 0.5 K/mm3 (0.0-0.4); Eosinophils % 5.2 % (0.1-12.0); Hematocrit 42.7 % (37.0-47.0); Hemoglobin 14.3 g/dL (12.2-16.2); Lymphocytes # 2.8 K/mm3 (0.7-4.5); Lymphocytes % 31.1 % (10-50); Mean Corpuscular HGB Conc 33.6 g/dL (31.8-35.4); Mean Corpuscular Hemoglobin 33.4 pg (27.0-31.2); Mean Corpuscular Volume 99.2 fl (81-99); Mean Platelet Volume 9.4 fl (7.4-10.4); Monocytes # 0.7 K/mm3 (0.1-1.0); Monocytes % 7.5 % (1.7-9.3); Neutrophils # 4.9 K/mm3 (1.8-7.8); Neutrophils % 55.3 % (37.0-80.0); Platelet Count 358 K/mm3 (142-424); Red Cell Distribution Width 13.8 % (11.5-17.5); White Blood Count 8.9 K/mm3 (4.8-10.8)
--- NOTE | 2023-10-04 20:15 | HMH.EDGENADL ---
Discharge Plan Disposition Patient Disposition: Home, Self-Care Condition: Good Prescriptions Prescriptions: No Action One-A-Day Women's Complete(vK) 18 mg-400 mcg- 25 mcg tablet 1 tab PO DAILY omeprazole 40 mg capsule,delayed release(DR/EC) 40 mg PO QDAY Qty: 30 1RF Rx Instructions: swallow whole; do not crush, chew, dissolve, or cut/break diphenhydramine HCl 25 MG tablet 25 mg PO Q8 PRN (Reason: Rash) 3 Days Qty: 9 0RF cetirizine 10 MG tablet 10 mg PO DAILY famotidine 40 MG tablet 40 mg PO HS Referrals Follow up/Referrals: Varsha Haley MD [Primary Care Provider] - See instructions Activity Restrictions/Add. Instructions Additional Instructions/Restrictions: Please keep your feet elevated. Limit salt intake. Follow-up with your primary care provider over the next 2 days for reassessment. Return to the emergency department for new or worsening symptoms. Clinical Impressions Clinical Impression: Localized swelling of both lower legs Instructions Patient Instructions: DI for Peripheral Edema -- Bilateral Discharge ED Provider: Katy Ordoñez General Adult HPI General Chief complaint: Shortness of Breath/Dyspnea Stated complaint: SOA, bilateral swelling in feet and hands Time Seen by Provider: 10/04/23 18:11 Mode of Arrival: Ambulatory Source of Information: Patient Limitations: No Limitations Description of Symptoms (Recalled from ER Triage Doc. by RN): Patient reports swelling in her hands and feet for a couple of days and SOB since yesterday. History of Present Illness HPI narrative: This patient is a 47-year-old female with a history of chest pain, GERD, dyspnea, stable angina, and anxiety presenting to the emergency department for evaluation with concern for bilateral lower extremity swelling and dyspnea on exertion. She states that she noticed this for the last couple of days. She denies any fevers, chills, cough, congestion, chest pain, abdominal pain, nausea, vomiting, changes bowel movements, or other concerns. She denies any history of blood clots or clotting disorders. She denies any recent medication changes or other concerns. She has otherwise been well. Related Data Home Medications Medication Instructions Recorded Confirmed cetirizine 10 mg tablet 10 mg PO DAILY Allergy symptoms 07/08/20 06/24/22 yduymoto-rkkahrc-qxmd-iron 18 1 tab PO DAILY Supplement 01/31/22 06/24/22 mg-FA 400 mcg-vit K 25 mcg tablet (One-A-Day Women's Complete(with vit K)) famotidine 40 mg tablet 40 mg PO HS acid reflux 06/17/22 06/24/22 Previous Rx's Medication Instructions Recorded diphenhydramine HCl 25 mg tablet 25 mg PO Q8 PRN Rash 3 days #9 tabs 10/19/21 omeprazole 40 mg capsule,delayed 40 mg PO QDAY #30 caps 06/24/22 release Allergies Allergy/AdvReac Type Severity Reaction Status Date / Time morphine Allergy Rash Verified 01/17/23 15:40 [facility] Disclaimer: The information contained in this section may have been updated after the patient was seen, as this information can be updated by other users. Medical History Chest pain Dyspnea Hx of rheumatic fever Palpitations Tobacco dependence syndrome Social History Smoking Status: Current every day smoker tobacco type: cigarettes packs per day: 1 alcohol intake: never substance use type: denies use current occupational status: employed Travel in the last 8 weeks: [place] the [place] housing: house caffeine: Yes ROS Obtained: Yes All systems reviewed & no additional complaints except as documented Physical Exam General General appearance: alert and in no apparent distress Head Head exam: atraumatic and normocephalic Eye Eye exam: Present normal appearance, PERRL and EOMI ENT ENT exam: Present normal exam, normal oropharynx, mucous membranes moist and normal external
[2023-10-04 21:04] VITALS: BP 134/84; PULSE 81; RESP 20; TEMP 36.6; O2SAT 98
== END 2023-10-04 21:00 | disposition home or self-care (01) ==
PROVIDERS: Emergency Provider Emergency Medicine; PCP Family Medicine
DX: R22.43 Localized swelling, mass and lump, lower limb, bilateral (principal); R06.02 Shortness of breath; K21.9 Gastro-esophageal reflux disease without esophagitis; I20.9 Angina pectoris, unspecified; F17.210 Nicotine dependence, cigarettes, uncomplicated
CPT/HCPCS: 71046; 80053; 84436; 84443; 85025; 93005; 99284

== ENCOUNTER 2024-04-02 14:57 | Outpatient (CLI) | payer OTHER, SELFPAY ==
[2024-04-02 15:53] LABS: Basophils # 0.1 K/mm3 (0-0.2); Eosinophils # 0.7 K/mm3 (0.0-0.4); Eosinophils % 6.5 % (0.1-12.0); Hematocrit 43.1 % (37.0-47.0); Hemoglobin 14.1 g/dL (12.2-16.2); Lymphocytes # 3.5 K/mm3 (0.7-4.5); Lymphocytes % 32.1 % (10-50); Mean Corpuscular HGB Conc 32.8 g/dL (31.8-35.4); Mean Corpuscular Hemoglobin 33.2 pg (27.0-31.2); Mean Corpuscular Volume 101.1 fl (81-99); Mean Platelet Volume 8.8 fl (7.4-10.4); Monocytes # 0.7 K/mm3 (0.1-1.0); Monocytes % 6.1 % (1.7-9.3); Neutrophils # 5.9 K/mm3 (1.8-7.8); Neutrophils % 54.4 % (37.0-80.0); Platelet Count 360 K/mm3 (142-424); Red Blood Count 4.27 M/mm3 (4.20-5.40); Red Cell Distribution Width 13.3 % (11.5-17.5); White Blood Count 10.9 K/mm3 (4.8-10.8)
[2024-04-02 17:20] LABS: Chloride 104 mmol/L (98-107); Potassium 4.3 mmoL/L (3.5-5.1); Sodium 138 mmol/L (136-145)
[2024-04-02 17:22] LABS: Bilirubin,Unconjugated 0.1 mg/dL (0.0-1.1); Blood Urea Nitrogen 9 mg/dl (7-17); Estimated Glomerular Filt Rate 67 ml/min (>60); GFR (African American) 82 ML/MIN (>60)
[2024-04-02 17:23] LABS: Alanine Aminotransferase 10 U/L (12-78); Albumin Level 4.1 g/dl (3.5-5.0); Alkaline Phosphatase 61 U/L (38-126); Anion Gap 9.3 mEq/L (5-15); Aspartate Amino Transferase 18 U/L (14-36); Bilirubin,Direct 0.3 mg/dl (0.0-0.4); Bilirubin,Indirect 0.1 mg/dL (0.0-0.9); Bilirubin,Total 0.4 mg/dl (0.2-1.3); Calcium 9.7 mg/dl (8.4-10.2); Carbon Dioxide 29 mmol/L (22.0-30.0); Chol/HDL Ratio 3.3 (1-3.5); Cholesterol 228 mg/dl (140-200); Glucose 86 mg/dl (74-100); HDL Cholesterol 69 mg/dl (40-60); Total Protein,Serum 6.7 g/dl (6.3-8.2); Triglycerides 124 mg/dl (30-150); VLDL Cholesterol 25 mg/dL (0-40)
[2024-04-02 17:35] LABS: Direct LDL Cholesterol 126.67 mg/dL (100-129)
[2024-04-02 17:42] LABS: Free T4 (Free Thyroxine) 0.93 ng/dl (0.78-2.19)
[2024-04-02 17:55] LABS: Thyroid Stimulating Hormone 1.68 uIU/mL (0.465-4.68)
== END 2024-04-02 23:59 | disposition home or self-care (01) ==
LOC: LAB 15:00
PROVIDERS: PCP Family Medicine; Visit Provider Internal Medicine
DX: R06.09 Other forms of dyspnea (principal); R42 Dizziness and giddiness; R00.2 Palpitations; Z86.79 Personal history of other diseases of the circulatory system; R22.43 Localized swelling, mass and lump, lower limb, bilateral; F17.210 Nicotine dependence, cigarettes, uncomplicated
CPT/HCPCS: 36415; 80048; 80061; 80076; 84439; 84443; 85025; 93270

== ENCOUNTER 2024-04-17 09:17 | Outpatient (CLI) | payer OTHER, SELFPAY ==
--- NOTE | 2024-04-17 09:18 | CA_ITS ---
APPROVED REPORT Exam: Exercise Treadmill Technologist: Ragini Isabel Ht: 5 ft 7 in Wt: 172 lbs BSA: 1.90 m2 HR: 70 bpm BP: 99/66 mmHg Rhythm: NSR Indications: Dyspnea Medical History Medications: CetIRIZINE,,,,, DiPHENHYDRAMINE hci,,,,, Stress Test Details Test: Manual Treadmill HR Resting HR: 88 bpm Max Heart Rate (APMHR): 174 bpm Max HR Achieved: 128 bpm Target HR (85% APMHR): 148 bpm % of APMHR: 74 Recovery HR: 65 bpm HR response to stress: Blunted HR response to stress BP Resting BP: 99.0/66.0 mmHg Max BP: 112.0/71.0 mmHg Recovery BP: 97.0/68.0 mmHg BP response to stress: Normal blood pressure response to stress. ECG Resting ECG: Normal sinus rhythm Stress EC.[address] depression Arrhythmia: None Recovery ECG: Return to baseline within 3 minutes of recovery Recovery Arrhythmia: None Clinical Exercise duration: 01:13 min Highest Stage Achieved: Exercise capacity: 4.6 METs Overall Exercise Capacity for Age: Poor Stress ECG Conclusion This is a suboptimal, non-diagnostic stress test due to inability to achieve target HR. Patient walked 1:13 on Tera Protocol, stopping at patients request due to dizziness and light-headedness. Poor exercise capacity compared to age and sex matched peers. There is blunted HR response to exercise. Symptoms: Burning and heaviness in chest, dizziness. Arrhythmias/Ectopy: None ST-T Changes: Within normal ST response to exercise for the level of HR achieved. Conclusion: Suboptimal, non-diagnostic stress test due to inability to achieve target HR. Poor exercise capacity. No ischemic changes at peak stress for level of HR achieved. GXT only (no imaging). Further evaluation with either pharmacologic nuclear stress test vs. CCTA is recommended, if clinically indicated, for evaluation of ischemia. Test Summary REST . . . . . . . Sitting REST . . . . . . . Standing REST 13:27 0.0 0.0 88 . 99/ 66 . . Stage 1 01:00 10.0 1.7 112 . . . . Stage 1 01:13 10.0 1.7 119 . . . Stop exercise at 01:13 RECOVERY 01:00 0.0 0.0 85 . . . . RECOVERY 02:00 0.0 0.0 67 . 112/ 71 . . RECOVERY 03:00 0.0 0.0 61 . 112/ 71 . . RECOVERY . . . . . . . Protocol changed to Manual Treadmill RECOVERY 04:00 0.0 0.0 61 . 112/ 69 . . RECOVERY 05:00 0.0 0.0 62 . 99/ 68 . . RECOVERY 05:39 0.0 0.0 72 . 97/ 68 . . Electronically signed by : Morelia Howard MD 04/17/2024 23:34:57
--- NOTE | 2024-04-17 09:18 | CA_ITS ---
APPROVED REPORT EXAM: Comprehensive 2D, Doppler, and color-flow Echocardiogram Lead Miner Blasting: Cecelia Gay, RT(R) Ht: 5 ft 7 in Wt: 172lbs BSA: 1.90 BP: 111/71 mmHg Indications: dyspnea, CP, smoker, edema, rheumatic fever, FRIEDMAN, palpitations. 2D Dimensions Left Atrium 2.83 cm F: 2.7 - 3.8 LVEF (Mathur's) 55.60 % F: 54 - 74 LVOT 1.99 cm (M/F) 1.5-2.5 LV Volume 105.50 mL F: 46 - 106 LV Volume Index 55.5 mL/m2 F: 29 - 61 LA Volume 25.30 mL LA Volume Index 13.32 mL/m2 (M/F) 16-34 EF AP4 41.60 % EF AP2 57.8 % EF BP 55.6 % GL Strain -17.2 % M-Mode Dimensions RVDd 2.71 cm (0.9-2.6) LVDd 4.63 cm (3.5-5.7) Ao Diam 3.03 cm (2.0-3.7) LVDs 3.42 cm (3.5-5.7) IVSd 0.71 cm (0.6-1.1) PWd 0.75 cm (0.6-1.1) EF (Teich) 51.30% FS 26.10% EDV (Teich) 98.80 mL ESV (Teich) 48.10 mL LV Diastology E Decel Time 189 (160-240 msec) E/A Ratio 1.3 MED E' 8.4 (>= 7 cm/sec) E'/MED E' Ratio 7.39 (<= 14) LAT E' 14.2 (>= 10 cm/sec) E/LAT E' Ratio 4.37 (<= 14) Mitral Valve MV E Max Jhonathan. 62.0 (40-130 cm/s) MV A Velocity 47.0 (40-130 cm/s) E/A Ratio 1.32 MV Decel. Time 189 (160-240 ms) Tricuspid Valve TR P. Velocity 196.00 cm/s RAP Estimate 10.00 mmHg RVSP 25.30 mmHg Left Ventricle The left ventricle is normal size. The left ventricular systolic function is normal. The left ventricular ejection fraction is within the normal range. There is normal left ventricular wall thickness. There is normal LV segmental wall motion. The left ventricular diastolic function is normal. LVEF is 55%. Right Ventricle The right ventricle is normal size. The right ventricular systolic function is normal. Atria The left atrium size is normal. The right atrium size is normal. There is no Doppler evidence of interatrial shunt. Aortic Valve The aortic valve opens well. There is no aortic valvular stenosis. No aortic regurgitation is present. Mitral Valve The mitral valve is normal in structure. No evidence of mitral valve stenosis. Trace mitral regurgitation. Tricuspid Valve The tricuspid valve leaflets are thin and pliable. Trace tricuspid regurgitation. RVSP is normal. Pulmonic Valve The pulmonary valve is normal in structure. Trace pulmonic regurgitation. Great Vessels The aortic root is normal in size. The ascending aorta is normal in size. IVC is normal in size and collapses >50% with inspiration. Pericardium There is no pericardial effusion. Other Information Study Quality: Adequate Conclusion Normal biventricular systolic function. No significant valvular stenosis or regurgitation. Electronically signed by : Morelia Howard MD 04/17/2024 13:06:48
== END 2024-04-17 23:59 | disposition home or self-care (01) ==
LOC: RT 09:18
PROVIDERS: PCP Family Medicine; Visit Provider Internal Medicine
DX: R06.09 Other forms of dyspnea (principal); R42 Dizziness and giddiness; R00.2 Palpitations; R22.43 Localized swelling, mass and lump, lower limb, bilateral; F17.200 Nicotine dependence, unspecified, uncomplicated; Z86.79 Personal history of other diseases of the circulatory system
CPT/HCPCS: 93017; 93018; 93306

== ENCOUNTER 2024-05-08 11:58 | Outpatient (CLI) | payer OTHER, SELFPAY ==
[2024-05-08] VITALS (7 sets, daily range): BP systolic 87–123; BP diastolic 51–71; PULSE 56–75; RESP 16–18; TEMP 36.4; O2SAT 99–100; BMI 26.6
--- NOTE | 2024-05-08 11:59 | CT_ITS ---
APPROVED REPORT Counterintelligence Agent: CLINICAL INDICATION Chest Pain TECHNIQUE Image Acquisition: A 128 slice MDCT scanner ([employer] BitXa View) was used for data acquisition. A noncontrast coronary calcium scan was performed. A CT attenuation threshold of 130 Hounsfield units (HU) was used for the detection of calcium in contiguous voxels of 1 sq mm in area to be counted as individual lesions. Bolus tracking in the ascending aorta with a threshold of 180 HU was performed. Immediately afterwards, ECG synchronized cardiac CT was then performed from the cardiac base to apex using retrospective gating with ECG tube current modulation. A total of 85 mL of Isovue 370 mg/mL contrast medium was administered at 5 mL/sec followed by a saline flush using a biphasic injection protocol. A tube voltage of 120 KVp was used. The patient received the following medications prior to the cardiac CT. 0.4 mg of sublingual nitroglycerin The average heart rate at the time of acquisition was 71 bpm and regular. Image Reconstruction Transaxial images were reconstructed at 0.67 mm slide thickness. Data was reviewed interactively on an advanced workstation capable of 2 and 3-dimensional displays in all conventional reconstruction formats, including multiplanar reformations, maximum intensity projections, curved multiplanar reformations, and volume rendered reconstructions. When applicable, selected routine images describing the relevant coronary anatomy and pathology were saved and sent to PACS. Complications None Technical Quality Overall image quality was good. Coronary artery opacification was adequate. Total DLP (Dose-Length Product) is 1566.5 mGy-cm. The reported value represents the total of one or more individual components during the CT acquisition of this date and at this time, and as such, the same value may appear in more than one CT report depending on the interpreting/reporting physicians. COMPARISON None FINDINGS CT Coronary Calcium Scoring LMA (Left Main Artery) = 0 LAD (Left Anterior Descending) = 0 LCX (Left Coronary Circumflex) = 0 RCA (Right Coronary Artery) = 0 Total Calcium Score = 0 using the AJ-130 method. The interpretation of the calcium heart score is based on the following continuum*: 0 = no calcified plaque detected (risk of coronary artery disease is very low ??? less than 5%) 1-10 = calcium detected in extremely minimal levels (risk of coronary diseases is still low ??? less than 10%) 11-100 = mild levels of plaque detected with certainty (mild or minimal narrowing of heart arteries is likely) 101-400 = definite,at least moderate levels of plaque detected (relatively high risk of a heart attack within 3-5 years) >401-999 = extensive levels of plaque detected (high risk of heart attack, high levels of vascular disease are present, high likelihood of at least one significant coronary narrowing) *The calcium heart score quantifies the burden of coronary calcification/plaque in the coronary arteries. The calcium heart score is not able to evaluate the presence or burden of non-calcified (i.e. soft) plaque. There is no identifiable calcification in the aortic valve, mitral annulus or mitral valve, pericardium, or myocardium. Coronary CT Angiography The coronary arterial system is right dominant. Quantitative Stenosis Grading: Left Main (LM): The left main originates normally from the left sinus of Valsalva. The LM trifurcates into the left anterior descending artery, ramus intermedius, and left circumflex artery. The LM is patent with no evidence of atherosclerosis. Left Anterior Descending (LAD) and Diagonal Branches: The LAD gives off 2 diagonal branch(es). The LAD and its branches are patent with no evidence of atherosclerosis. There is no evidence of LAD-myocardial bridge. Ramus-intermedius (RI): The RI is patent. Left Circumflex (LCX) and Obtuse Marginals (OM): The LCX gives off 1 Obtuse Marginal (OM) branch(es). The LCX and its branches are patent with no evidence of atherosclerosis. Right Coronary Artery (RCA): The RCA originates normally from the right sinus of Valsalva. The RCA gives off a posterior descending artery (PDA) and posterolateral (PL) branches. The RCA and its branches are patent with no evidence of atherosclerosis. Non-Coronary Cardiac Findings: Analysis of the left ventricular (LV) structure and function was performed after 3-D reconstruction of the LV from axial images, with user-corrected automatic contouring for assessment of LV volumes and user-defined reconstruction from oblique planes for measurement of 3-D cardiac structure and function. -The left ventricle systolic function is normal. -There is no left atrial appendage filling defect. Two right pulmonary veins and two left pulmonary veins drain normally into the left atrium. -No pericardial thickening or calcification. -Central and branch pulmonary arteries in the [id number] are unremarkable. -Thoracic aorta within the visualized thoracic aortic-branches in the [id number] is unremarkable. Extracardiac Structures No significant extra-cardiac findings. Note, however, that this study is focused on the cardiac findings. IMPRESSION -Absence of coronary calcification with an Agatston score = 0 using the AJ-130 method. -No evidence of significant flow-limiting atherosclerosis of the coronary arteries. -No evidence of coronary anomalies or myocardial bridges. -CAD-RADS 0. Management recommendations per ACC/AHA guidelines*, as clinically appropriate. *Recommendations: CAD RADS 0: Reassurance. Consider non-atherosclerotic causes of chest pain. CAD RADS 1: Consider non-atherosclerotic causes of chest pain. Consider preventive therapy and risk factor modification. CAD RADS 2: Consider non-atherosclerotic causes of chest pain. Consider preventive therapy and risk factor modification, particularly for patients with nonobstructive plaque in multiple segments. CAD RADS 3: Consider further functional testing. Consider symptom-guided anti-ischemic and preventive pharmacotherapy as well as risk factor modification per published guideline statements. CAD RADS 4A: Consider further functional testing or invasive coronary angiography with revascularization per published guideline statements. Consider symptom-guided anti-ischemic and preventive pharmacotherapy as well as risk factor modification per published guideline statements. CAD RADS 4B: Invasive coronary angiography recommended with revascularization per published guideline statements. Consider symptom-guided anti-ischemic and preventive pharmacotherapy as well as risk factor modification per published guideline statements. CAD RADS 5: Consider invasive angiography and/or viability assessment with revascularization per published guideline statements. Consider symptom-guided anti-ischemic and preventive pharmacotherapy as well as risk factor modification per published guideline statements. CRITICAL RESULT None COMMUNICATION Per this written report The coronary and cardiac findings of this CCTA were reviewed, reported, and signed by Ramiro Howard MD (Collector) Conclusion Electronically signed by : Morelia Howard MD 05/13/2024 12:53:36
[2024-05-08] MEDS: 0.9 % SODIUM CHLORIDE 1000ML 1,000 ML 999 ML IV (12:37)
[2024-05-08 13:09] LABS: Chloride 103 mmol/L (98-107); Potassium 4.3 mmoL/L (3.5-5.1); Sodium 141 mmol/L (136-145)
[2024-05-08 13:12] LABS: Anion Gap 15.3 mEq/L (5-15); Blood Urea Nitrogen 11 mg/dl (7-17); Calcium 9.6 mg/dl (8.4-10.2); Carbon Dioxide 27 mmol/L (22.0-30.0); Creatinine Clearance Estimated 95 mL/min (50-200); Estimated Glomerular Filt Rate 67 ml/min (>60); GFR (African American) 82 ML/MIN (>60); Glucose 97 mg/dl (74-100)
[2024-05-08 13:13] LABS: HCG Qualitative, Serum Negative (Negative)
[2024-05-08] MEDS: NITROGLYCERIN 0.4MG SL TABLET SL (13:53)
[2024-05-08] MEDS: SODIUM CHLORIDE 0.9% 10ML SYR (RAD ONLY) 10 ML IV (14:24)
[2024-05-08] MEDS: IOPAMIDOL-370 (76%);100ML BOTTLE 85 ML IV (14:24)
[2024-05-08] MEDS: 0.9 % SODIUM CHLORIDE 50 ML VIAL IV (14:24)
== END 2024-05-08 14:30 | disposition home or self-care (01) ==
PROVIDERS: PCP Family Medicine; Visit Provider Internal Medicine
DX: R06.09 Other forms of dyspnea (principal); R00.2 Palpitations; R07.9 Chest pain, unspecified; R42 Dizziness and giddiness
CPT/HCPCS: 75574; 80048; 84703; Q9967

== ENCOUNTER 2024-12-18 17:55 | Emergency (ER) | payer OTHER, SELFPAY ==
[2024-12-18 17:57] VITALS: BP 120/78; PULSE 119; RESP 18; TEMP 36.8; O2SAT 98; BMI 27.2
--- NOTE | 2024-12-18 18:13 | CT_ITS ---
PROCEDURE INFORMATION: Exam: CT Neck With Contrast Exam date and time: 12/18/2024 6:49 PM Age: 49 years old Clinical indication: Mass, lump, or swelling in neck; Right; Additional info: R sided submandibular mass with voice change TECHNIQUE: Imaging protocol: Computed tomography of the neck with contrast. Radiation optimization: All CT scans at this facility use at least one of these dose optimization techniques: automated exposure control; mA and/or kV adjustment per patient size (includes targeted exams where dose is matched to clinical indication); or iterative reconstruction. Contrast material: ISOVUE; Contrast volume: 75 ml; Contrast route: IV; COMPARISON: 1. MR HEAD/BRAIN WO CON 10/10/2019 10:[address] HEAD/BRAIN WO CON 07/09/2019 2:42 AM 3. CR XR CHEST 2V 10/04/2023 6:39 PM FINDINGS: Salivary glands: Normal. Glands are normal in size. Pharynx: There is significant hyperemia of the lingual tonsils (image 45 series 3 and image 29 series 1002), please correlate with direct inspection. Prevertebral and retropharyngeal spaces: Unremarkable. Larynx: Unremarkable. Epiglottis is normal. Thyroid: Normal. No enlarged or calcified nodules. Trachea: Visualized trachea is unremarkable. Lungs: Unremarkable as visualized. Lymph nodes: Bilateral cervical lymphadenopathy such as a left submandibular node measuring up to 1.1 cm. Bones/joints: Unremarkable. No acute fracture. Soft tissues: Unremarkable. No significant soft tissue swelling. IMPRESSION: 1. There is significant hyperemia and soft tissue prominence of the lingual tonsils (image 45 series 3 and image 29 series 1002), please correlate with direct inspection. No fluid collection is seen. 2. Bilateral cervical lymphadenopathy such as a left submandibular node measuring up to 1.1 cm.
[2024-12-18 18:42] LABS: Basophils # 0.1 K/mm3 (0-0.2); Basophils % 0.6 % (0.1-2.0); Eosinophils # 0.4 K/mm3 (0.0-0.4); Eosinophils % 2.2 % (0.1-12.0); Hematocrit 39.9 % (37.0-47.0); Hemoglobin 13.4 g/dL (12.2-16.2); Lymphocytes # 2.3 K/mm3 (0.7-4.5); Lymphocytes % 13.8 % (10-50); Mean Corpuscular HGB Conc 33.6 g/dL (31.8-35.4); Mean Corpuscular Hemoglobin 31.4 pg (27.0-31.2); Mean Corpuscular Volume 93.4 fl (81-99); Mean Platelet Volume 10.3 fl (7.4-10.4); Monocytes # 1.2 K/mm3 (0.1-1.0); Monocytes % 7.3 % (1.7-9.3); Neutrophils # 12.5 K/mm3 (1.8-7.8); Neutrophils % 75.7 % (37.0-80.0); Platelet Count 379 K/mm3 (142-424); Red Blood Count 4.27 M/mm3 (4.20-5.40); Red Cell Distribution Width 12.5 % (11.5-17.5); White Blood Count 16.5 K/mm3 (4.8-10.8)
[2024-12-18 18:48] LABS: MANUAL DIFFERENTIAL MANUAL DIFFERENTIAL (MANUAL DIFF)
[2024-12-18] MEDS: SODIUM CHLORIDE 0.9% 10ML SYR (RAD ONLY) 10 ML IV (18:50)
[2024-12-18] MEDS: IOPAMIDOL-370 (76%);100ML BOTTLE 75 ML IV (18:50)
[2024-12-18 18:52] LABS: Albumin Level 4.7 g/dl (3.5-5.0); Chloride 100 mmol/L (98-107); Sodium 138 mmol/L (136-145)
[2024-12-18 18:53] LABS: Potassium 3.8 mmoL/L (3.5-5.1)
[2024-12-18 18:55] LABS: Alanine Aminotransferase 27 U/L (12-78); Albumin/Globulin Ratio 1.5 (1.1-1.8); Alkaline Phosphatase 66 U/L (38-126); Anion Gap 12.8 mEq/L (5-15); Aspartate Amino Transferase 27 U/L (14-36); Bilirubin,Total 0.9 mg/dl (0.2-1.3); Blood Urea Nitrogen 3 mg/dl (7-17); Carbon Dioxide 29 mmol/L (22.0-30.0); Creatinine Clearance Estimated 108 mL/min (50-200); Estimated Glomerular Filt Rate 77 ml/min (>60); GFR (African American) 93 ML/MIN (>60); Globulin 3.2 g/dL (1.3-3.2); Total Protein,Serum 7.9 g/dl (6.3-8.2)
[2024-12-18 18:56] LABS: Calcium 9.8 mg/dl (8.4-10.2); Glucose 106 mg/dl (74-100)
--- NOTE | 2024-12-18 18:56 | ED_ITS ---
Discharge Plan Disposition Patient Disposition: Home, Self-Care Prescriptions Prescriptions: New dexamethasone 6 mg tablet 6 mg PO DAILY Qty: 5 0RF cephalexin 500 mg capsule 1,000 mg PO BID 10 Days Qty: 40 0RF No Action pregabalin [Lyrica] 25 mg capsule 25 mg PO BID PRN (Reason: pain) Qty: 20 0RF betamethasone dipropionate 0.05 % cream 1 applic topical BID Qty: 15 1RF diphenhydramine HCl 25 MG tablet 25 mg PO Q8 PRN (Reason: Rash) 3 Days Qty: 9 0RF cetirizine 10 MG tablet 10 mg PO DAILY Referrals Follow up/Referrals: Carlos Bello MD [Primary Care Provider] - See instructions Hudson Blankenship MD [Physician] - See instructions Activity Restrictions/Add. Instructions Additional Instructions/Restrictions: Antibiotic twice daily for the next 10 days. Steroid each morning for the next 5. Call your family doctor to establish care for this visit to the emergency department and schedule follow-up within 48 hours to ensure improvement. If you have any worsening of your condition or any other concerning signs or symptoms, return to the emergency department or your primary care doctor for further evaluation. Schedule follow-up with ENT for further scope and management of lingual tonsils. Clinical Impressions Clinical Impression: Acute lingual tonsillitis Print Language Print Language: Pashto Discharge ED Provider: Hiren Washburn General Adult HPI General Chief complaint: Dental/Oral Stated complaint: knot in throat Time Seen by Provider: 12/18/24 17:58 Mode of Arrival: Ambulatory Source of Information: Patient Limitations: No Limitations Description of Symptoms (Recalled from ER Triage Doc. by RN): c/o lump in throat on the right side that she noticed 2 days ago, pt reports that she is having trouble swallowing, eating and drinking due to the lump. History of Present Illness HPI narrative: Please note that above description of symptoms, in this electronic medical record under categorization of recalled from ER triage doctor by RN are reflective of an initial nursing assessment, however, is not reflective of my full history and physical exam that was personally taken and clarified. Consequentially, this preceding description of symptoms, which may include the patient's categorized chief complaint in the EMR, do not reflect my personal clinical impression, and the ultimate description of history of present illness and patient stated complaints should be deferred to this section of the note. Unless stated otherwise or congruent with this section of the note, additional signs, symptoms, or incongruence should be interpreted as inaccurate with my clinical impression. Related Data Home Medications ?Medication ?Instructions ?Recorded ?Confirmed cetirizine 10 mg tablet 10 mg PO DAILY Allergy symptoms 07/08/20 11/12/24 Previous Rx's ?Medication ?Instructions ?Recorded diphenhydramine HCl 25 mg tablet 25 mg PO Q8 PRN Rash 3 days #9 tabs 10/19/21 betamethasone dipropionate 0.05 % 1 applic topical BID #15 grams 11/12/24 topical cream pregabalin 25 mg capsule (Lyrica) 25 mg PO BID PRN pain #20 caps 11/12/24 cephalexin 500 mg capsule 1,000 mg (2 x 500 mg) PO BID 10 12/18/24 days #40 caps dexamethasone 6 mg tablet 6 mg PO DAILY #5 tabs 12/18/24 Allergies Allergy/AdvReac Type Severity Reaction Status Date / Time morphine Allergy Rash Verified 11/12/24 13:12 duloxetine (From Cymbalta) AdvReac Dizziness Verified 11/12/24 13:12 [facility] Disclaimer: The information contained in this section may have been updated after the patient was seen, as this information can be updated by other users. Medical History Chest pain Dyspnea Tobacco dependence syndrome Hx of rheumatic fever Palpitations Social History Smoking Status: Current every day smoker tobacco type: cigarettes packs per day: 1 alcohol intake: never substance use type: denies use current occupational status: employed Travel in the last 8 weeks: None housing: house caffeine: Yes Have you lived/traveled outside [place] in past 30 days?: No Contact w/someone who lives/traveled outside US past 30 days?: No Exposure to someone with infectious disease in past 14 days?: No Do you have a fever (greater than 100.4 F or 38 C)?: No Have you tested positive for COVID-19: No Exposed to someone with COVID-19 in past 14 days?: No Do you have a sore throat?: No Do you have a cough?: No Do you have any weakness?: No Do you have any diarrhea?: No Are you experiencing any unusual bleeding?: No Do you have any muscle aches/pain?: No Do you have any abdominal pain?: No Are you experiencing loss of taste or smell?: No Other Medical History Have you received the Flu Vaccine for this season: No Have you received the Pneumonia Vaccine: No ROS Obtained: Yes All systems reviewed & no additional complaints except as documented Physical Exam General General appearance: alert Head Head exam: atraumatic and normocephalic Eye Eye exam: Present normal appearance, PERRL and EOMI ENT ENT exam: Present other (mildly muffled voice. Submandibular swelling on the right. No lymphadenopathy, minimally mobile mass. No evidence of tonsillitis, exudate, pharyngeal erythema, uvular deviation, palatal swelling, trismus, external neck swelling, submental induration, dental abscess, angioedema, or other abnormal ) Neck Neck exam: Present normal inspection, full ROM and trachea midline Respiratory Respiratory exam: Absent respiratory distress, wheezes, stridor, accessory muscle use or prolonged expiratory phase Cardiovascular Cardiovascular exam: Present other (Pulses equal symmetric in upper and lower extremities) Abdominal Exam Abdominal exam: Present soft; Absent distention, tenderness or pulsatile mass Extremities Exam Extremities exam: Absent edema Neurological Exam Neurological exam: Present alert, oriented X3 and CN II-XII intact; Absent motor sensory deficit Skin Skin exam: Present warm and dry; Absent diaphoresis or erythema Medical Decision Making Medical Records Medical records reviewed: Yes I reviewed the patient's medical records. Screening: Per USPSTF and CDC recommendations, given the prevalence of disease in our region, it is our hospital?s policy to screen for HIV and viral Hepatitis for all patients aged 18 and over and those with ongoing risk factors. Rhys Inquiry Pt receiving controlled substance: No Rhys was queried for this patient: No Vital Signs: 12/18/24 17:57 Temperature 98.3 F Temperature Source Oral Pulse Rate [Left Radial] 119 H Respiratory Rate 18 Blood Pressure [Right Arm] 120/78 Blood Pressure Mean [Right Arm] 92 02 Sat by Pulse Oximetry 98 Oxygen Delivery Method Room Air Lab Data Lab Results 12/18/24 18:34: WBC 16.5 H, RBC 4.27, Hgb 13.4, Hct 39.9, MCV 93.4, MCH 31.4 H, MCHC 33.6, RDW 12.5, Plt Count 379, MPV 10.3, Neut % (Auto) 75.7, Lymph % (Auto) 13.8, Meriwether % (Auto) 7.3, Eos % (Auto) 2.2, Baso % (Auto) 0.6, Neut # (Auto) 12.5 H, Lymph # (Auto) 2.3, Meriwether # (Auto) 1.2 H, Eos # (Auto) 0.4, Baso # (Auto) 0.1, Total Counted 100, Neutrophils % (Manual) 74, Lymphocytes % (Manual) 12, Monocytes % (Manual) 6, Eosinophils % (Manual) 4 H, Basophils % (Manual) 4.0 H, Platelet Estimate Normal, RBC Morphology Normal, Sodium 138, Potassium 3.8, Chloride 100, Carbon Dioxide 29, Anion Gap 12.8, BUN 3 L, Creatinine 0.80, Estimated Creat Clear 108, Estimated GFR 77, Est GFR ( Amer) 93, Glucose 106 H, Uric Acid 4.8, Calcium 9.8, Total Bilirubin 0.9, AST 27, ALT 27, Alkaline Phosphatase 66, Lactate Dehydrogenase 133 L, Total Protein 7.9, Albumin 4.7, Globulin 3.2, Albumin/Globulin Ratio 1.5, TSH 1.56, Thyroxine (T4) 11.3 H, HIV Ag/Ab Combo Qual Negative 12/18/24 18:34 12/18/24 18:34 Orders (Tests/Meds): ED MEDICATIONS Generic Name Dose Route Start Last Admin Trade Name Freq PRN Reason Stop Dose Admin Sodium Chloride 10 ml 12/18/24 18:48 12/18/24 18:50 Sodium Chloride 0.9% 10ml Syr (Rad Only) IV 01/17/25 18:47 10 ml NEEDED PRN Administration Maintain IV Site Discontinued Medications Generic Name Dose Route Start Last Admin Trade Name Freq PRN Reason Stop Dose Admin Ceftriaxone Sodium 1 gm 12/18/24 19:20 12/18/24 19:57 Ceftriaxone 1gm Vial IV 12/18/24 19:21 1 gm ONCE ONE Administration Dexamethasone Sodium Phosphate 10 mg 12/18/24 19:54 12/18/24 19:59 Dexamethasone 4mg/Ml 1ml Vial IV 12/18/24 19:55 10 mg ONCE ONE Administration Iopamidol 75 ml 12/18/24 18:48 12/18/24 18:50 Iopamidol-370 (76%);100ml Bottle IV 12/18/24 18:49 75 ml ONCE ONE Administration ORDERS Category Date Time Status CT soft tissue neck w con Stat Cat Scan 12/18/24 18:13 Completed POCUS Point of Care (ER Only) Stat Exams 12/18/24 18:13 Completed CBC w/Auto Diff [Complete Blood Count Auto Diff] Stat Lab 12/18/24 18:34 Completed CMP [Comprehensive Metabolic Panel] Stat Lab 12/18/24 18:34 Completed HIV Combo Stat Lab 12/18/24 18:34 Completed Hepatitis C Ab Qual. W/ RFX Stat Lab 12/18/24 18:34 Received LDH [Lactate Dehydrogenase] Stat Lab 12/18/24 18:34 Completed T4 (Thyroxine) Stat Lab 12/18/24 18:34 Completed TSH [Thyroid Stimulating Hormone] Stat Lab 12/18/24 18:34 Completed Uric Acid Stat Lab 12/18/24 18:34 Completed Medical Decision Narrative: 49-year-old female history of chronic tobacco use, rheumatic fever with aortic and mitral valve involvement, presenting with right-sided jaw swelling. Patient states has been going on for about 2 days. She states that she thought it was allergic reaction initially and took Benadryl. Since that time, has continued to just get worse. Went to an outside ED yesterday, states that they did not do or find anything in particular. Today, swelling is not improved, having difficulty breathing when she lays down as well as voice changes and muffled voice as well as difficulty swallowing. Came for second opinion. It is nonpainful, no fevers or chills, night sweats, unintended weight loss, sores in her mouth, chest pain, nausea, vomiting, or any other concerns. History was obtained via conversation with patient. On arrival, patient hemodynamically stable, alert, oriented x4, appropriate, GCS 15, moving all extremities spontaneously, pupils equal and reactive to light. Full physical exam performed and significant for firm, minimally mobile mass submandibular region on the right. No lymphadenopathy. No range of motion of neck difficulties. No stridor, bruit. No evidence of tonsillitis, exudate, pharyngeal erythema, uvular deviation, palatal swelling, trismus, external neck swelling, tongue elevation, submental induration, dental abscess, angioedema, or other abnormal gasper pharyngeal findings. No tenderness about angle of the mandible. Salivary glands appear normal. Thyroid appears normal and feels normal upon swallowing. Patient talking chin and extending neck when trying to swallow in the room. Differential includes inflammatory mass, infectious mass, malignancy, impending airway compromise, expanding hematoma, early Jerome's angina, among others. Patient placed on continuous cardiac monitoring and continuous pulse ox with initial blood pressure 120/78, heart rate teen, saturation 98% on room air. Initially no interventions were ordered. Workup independently interpreted and significant for white count 16.5 with neutrophilia. Patient's chemistry nonactionable with normal uric acid and LDH. Thyroid studies normal. Bedside [id number] ultrasound was performed to evaluate soft tissue swelling. Largely normal and symmetric soft tissue findings with no obvious lymphadenopathy.. On independent interpretation of imaging, patient has large lingual tonsils with mass effect on the airway. See radiology read for full review of final results. Patient given 1 g ceftriaxone and 10 mg of Decadron. I reached out to [facility] otolaryngology and shared the images. They recommended outpatient follow-up. Out of abundance of caution, contacted [facility] and spoke to ENT on-call, Dr. Carrillo. Recommended with leukocytosis, lingual tonsils, and imaging, treat with steroids, antibiotics, outpatient follow-up. On reevaluation, patient states that she is feeling about the same, really no change, but still in no acute distress. Results were relayed to her and she is also agreeable to outpatient follow-up and may for further scope, etc. with ENT. Because patient at baseline without signs or symptoms of clinical decompensation, deemed appropriate for discharge. Results were relayed to patient who voiced understanding and were agreeable to outpatient management and follow up. I discussed my clinical impression with patient and answered all questions. At this time, the evidence for any other entities in the differential is insufficient to warrant any further testing or ED observation. This was explained as well. Advisory was given that persistent or worsening symptoms require further evaluation. I confirmed the understanding of this discussion. Receiving Room Clerk disclaimer Much of this encounter note is an electronic yellow pages space salesperson spoken language to printed text. Electronic yellow pages space salesperson of the spoken language may permit errors. Although I have reviewed the note, some errors may still exist. Critical Care Critical Care Time Critical Care Time: No
[2024-12-18 19:07] LABS: Lactate Dehydrogenase 133 U/L (313-618); Uric Acid 4.8 mg/dl (2.5-6.2)
--- NOTE | 2024-12-18 19:12 | PC.NURSE ---
Called [facility] for a transfer, awaiting a call back at this time.
[2024-12-18 19:22] LABS: Eosinophils % 4 % (0-3); Lymphocytes % 12 % (10-50); Monocytes % 6 % (2-9); Neutrophils % 74 % (42-76); Platelet Estimate Normal; RBC Morphology Normal; Total Cells Counted 100
[2024-12-18 19:25] LABS: T4 (Thyroxine) 11.3 ug/dl (5.53-11.0)
[2024-12-18 19:29] LABS: Thyroid Stimulating Hormone 1.56 uIU/mL (0.465-4.68)
--- NOTE | 2024-12-18 19:49 | PC.NURSE ---
Spoke with [facility], speaking with them at this time.
[2024-12-18 19:52] LABS: HIV Combo NEGATIVE (Negative)
[2024-12-18] MEDS: cefTRIAXone 1GM VIAL 1 GM IV (19:57)
[2024-12-18 19:58] LABS: Hepatitis C Ab Qual. W/ RFX NEGATIVE (Negative)
[2024-12-18] MEDS: DEXAMETHASONE 4MG/ML 1ML VIAL 10 MG IV (19:59)
[2024-12-18 20:26] VITALS: BP 104/72; PULSE 79; RESP 20; TEMP 36.8; O2SAT 100
== END 2024-12-18 20:30 | disposition home or self-care (01) ==
PROVIDERS: Emergency Provider Emergency Medicine; PCP Family Medicine
DX: J03.90 Acute tonsillitis, unspecified (principal); R22.1 Localized swelling, mass and lump, neck; R13.10 Dysphagia, unspecified; R06.02 Shortness of breath
CPT/HCPCS: 70491; 80053; 83615; 84436; 84443; 84550; 85007; 85025; 85027; 86803; 87389; 96374; 96375; 99285; J0696; J1100; Q9967

== ENCOUNTER 2024-12-25 00:19 | Emergency (ER) | payer OTHER, SELFPAY ==
[2024-12-25 00:20] VITALS: BP 116/84; PULSE 93; RESP 18; TEMP 36.7; O2SAT 99; BMI 27.2
--- NOTE | 2024-12-25 00:28 | CT_ITS ---
PROCEDURE INFORMATION: Exam: CT Neck With Contrast Exam date and time: 12/25/2024 1:50 AM Age: 49 years old Clinical indication: Other: Globus/throat swelling sensation; Nown adenopathy TECHNIQUE: Imaging protocol: Computed tomography of the neck with contrast. Radiation optimization: All CT scans at this facility use at least one of these dose optimization techniques: automated exposure control; mA and/or kV adjustment per patient size (includes targeted exams where dose is matched to clinical indication); or iterative reconstruction. Contrast material: ISOVUE; Contrast volume: 75 ml; Contrast route: IV; COMPARISON: CT SOFT TISSUE NECK W CON 12/18/2024 6:49 PM FINDINGS: Salivary glands: Normal. Glands are normal in size. Pharynx: See Soft tissues finding. Larynx: Unremarkable. Epiglottis is normal. Thyroid: Normal. No enlarged or calcified nodules. Trachea: Visualized trachea is unremarkable. Lungs: Unremarkable as visualized. Lymph nodes: Bilateral cervical lymphadenopathy is noted measuring up to 1.1 cm. Bones/joints: Unremarkable. No acute fracture. Soft tissues: Again noted is soft tissue edema and hyperemia of the lingular tonsils, this appears unchanged from the prior examination. No discrete abscess is identified. IMPRESSION: Stable edema and hyperemia of the lingular tonsils without development of a focal abscess, again consider direct inspection for further evaluation.. Diffuse cervical adenopathy is unchanged.
--- NOTE | 2024-12-25 00:30 | ED_ITS ---
Discharge Plan Disposition Patient Disposition: Xfer Short-Term Hosp Condition: Fair Prescriptions Prescriptions: No Action pregabalin [Lyrica] 25 mg capsule 25 mg PO BID PRN (Reason: pain) Qty: 20 0RF betamethasone dipropionate 0.05 % cream 1 applic topical BID Qty: 15 1RF diphenhydramine HCl 25 MG tablet 25 mg PO Q8 PRN (Reason: Rash) 3 Days Qty: 9 0RF cetirizine 10 MG tablet 10 mg PO DAILY dexamethasone 6 mg tablet 6 mg PO DAILY Qty: 5 0RF cephalexin 500 mg capsule 1,000 mg PO BID 10 Days Qty: 40 0RF Referrals Follow up/Referrals: Carlos Bello MD [Primary Care Provider] - See instructions Clinical Impressions Clinical Impression: Lingual tonsillitis, Generalized weakness, Globus sensation Stand Alone Forms Stand Alone Forms: Transfer Record - ED Print Language Print Language: Lebanese Discharge ED Provider: Dexter Vital General Adult HPI General Chief complaint: Weakness Stated complaint: mass in throat, tightness Time Seen by Provider: 12/25/24 00:22 Mode of Arrival: Ambulatory Source of Information: Patient Limitations: No Limitations Description of Symptoms (Recalled from ER Triage Doc. by RN): Patient presents to ED with increased weakness, and states she was seen on 12/18 for a 'throat mass'. Patient states she thinks it has gotten bigger, no distress on assessment. O2 sat on RA is 99%. History of Present Illness HPI narrative: 49-year-old female who is an active tobacco user and was recently diagnosed with lingual tonsillitis presents to the ER for complaints of worsening throat swelling sensation. Patient reports she was evaluated on 12/18/2024 and was found to have a mass . Review of records including CT scan from that day demonstrates patient has evidence of lingual tonsillitis without fluid collection, patient also had bilateral cervical lymphadenopathy. She also had leukocytosis. She was initially treated with antibiotics and steroids in the ER. Records demonstrate that the ER physician attempted to have the patient transferred to or [facility], both of whom declined believing the patient would be appropriate for outpatient management. Patient was prescribed dexamethasone and cephalexin for outpatient management. She reports she took these medications as directed. She does admit she is 2 hours late taking her second dose of cephalexin for today. She states she ran out of her dexamethasone 2 days ago. She reports in that time she has noticed that the swelling seems to be worsening after it had initially improved. She states she feels like it is pushing on her airway again, she is not having any shortness of breath or difficulty swallowing though she states it is uncomfortable to eat. She is tolerating secretions on arrival. She has no stridor. She states she is worried she could have cancer, she has follow-up with ENT on . Patient reports she feels generally rundown, she has no localizing weakness. She hopes that she just has a virus or ear infection. She reports the worst of her pain is under the right side of her tongue and throat and radiates into her right ear. Patient reports no new fevers, she is not having chest pain or difficulty breathing, no vomiting or diarrhea. No tooth or dental pain. She is very anxious on arrival. Related Data Home Medications ?Medication ?Instructions ?Recorded ?Confirmed cetirizine 10 mg tablet 10 mg PO DAILY Allergy symptoms 07/08/20 11/12/24 Previous Rx's ?Medication ?Instructions ?Recorded diphenhydramine HCl 25 mg tablet 25 mg PO Q8 PRN Rash 3 days #9 tabs 10/19/21 betamethasone dipropionate 0.05 % 1 applic topical BID #15 grams 11/12/24 topical cream pregabalin 25 mg capsule (Lyrica) 25 mg PO BID PRN pain #20 caps 11/12/24 cephalexin 500 mg capsule 1,000 mg (2 x 500 mg) PO BID 10 12/18/24 days #40 caps dexamethasone 6 mg tablet 6 mg PO DAILY #5 tabs 12/18/24 Allergies Allergy/AdvReac Type Severity Reaction Status Date / Time morphine Allergy Rash Verified 11/12/24 13:12 duloxetine (From Cymbalta) AdvReac Dizziness Verified 11/12/24 13:12 [facility] Disclaimer: The information contained in this section may have been updated after the patient was seen, as this information can be updated by other users. Medical History Chest pain Dyspnea Tobacco dependence syndrome Hx of rheumatic fever Palpitations Social History Smoking Status: Current every day smoker tobacco type: cigarettes packs per day: 1 alcohol intake: never substance use type: denies use current occupational status: employed Travel in the last 8 weeks: None housing: house caffeine: Yes Have you lived/traveled outside [place] in past 30 days?: No Contact w/someone who lives/traveled outside US past 30 days?: No Exposure to someone with infectious disease in past 14 days?: No Do you have a fever (greater than 100.4 F or 38 C)?: No Have you tested positive for COVID-19: No Exposed to someone with COVID-19 in past 14 days?: No Do you have a sore throat?: No Do you have a cough?: No Do you have any weakness?: No Do you have any diarrhea?: No Are you experiencing any unusual bleeding?: No Do you have any muscle aches/pain?: No Do you have any abdominal pain?: No Are you experiencing loss of taste or smell?: No Other Medical History Have you received the Flu Vaccine for this season: No Have you received the Pneumonia Vaccine: No ROS Obtained: Yes Systems reviewed as appropriate & no additional complaints except as documented Per HPI Physical Exam General General appearance: alert and in no apparent distress Head Head exam: atraumatic and normocephalic Eye Eye exam: Present PERRL and EOMI ENT ENT exam: Present mucous membranes moist, TM's normal bilaterally and other (No woodiness or swelling of the floor the mouth, exam is symmetric); Absent normal oropharynx (Mild posterior oropharynx erythema but no tonsillomegaly, no exudates, Mallampati 1, tolerating secretions, no stridor) Expanded ENT Exam Mouth exam: Present normal external inspection and tongue normal; Absent drooling, tongue elevation or tongue swelling Neck Neck exam: Present normal inspection, full ROM, trachea midline and other (Symmetric exam); Absent lymphadenopathy (No palpable lymphadenopathy) or thyromegaly Chest Chest inspection: Present symmetric chest wall rise Respiratory Respiratory exam: Present normal lung sounds bilaterally and other (Normal respiratory rate, saturating 99% on room air); Absent respiratory distress, wheezes or stridor Cardiovascular Cardiovascular exam: Present regular rate and normal rhythm Abdominal Exam Abdominal exam: Present soft; Absent distention or tenderness Extremities Exam Extremities exam: Present full ROM; Absent edema Neurological Exam Neurological exam: Present alert, oriented X3, CN II-XII intact and normal gait; Absent motor sensory deficit Psychiatric Psychiatric exam: Present normal affect and normal mood Skin Skin exam: Present warm and dry Medical Decision Making Medical Records Medical records reviewed: Yes I reviewed the patient's medical records. Screening: Per USPSTF and CDC recommendations, given the prevalence of disease in our region, it is our hospital?s policy to screen for HIV and viral Hepatitis for all patients aged 18 and over and those with ongoing risk factors. MR Comment: See HPI Rhys Inquiry Pt receiving controlled substance: No Vital Signs: 12/25/24 00:20 12/25/24 02:57 Temperature 98.0 F 98.0 F Temperature Source Oral Oral Pulse Rate 78 Pulse Rate [Right Brachial] 93 H Respiratory Rate 18 18 Blood Pressure 101/79 L Blood Pressure [Right Arm] 116/84 Blood Pressure Mean [Right Arm] 94 Blood Pressure Source Automatic Cuff Blood Pressure Source [Right Arm] Automatic Cuff Blood Pressure Position Supine Blood Pressure Position [Right Arm] Supine 02 Sat by Pulse Oximetry 99 Oxygen Delivery Method Room Air Room Air Lab Data Lab Results 12/25/24 00:30: Group A Strep Rapid Negative 12/25/24 00:33: Chlamy pneumoniae PCR Not detected, Adenovirus (PCR) Not detected, B. pertussis DNA (PCR) Not detected, Coronavirus OC43 (PCR) Not detected, Coronavirus HKU1 (PCR) Not detected, Coronavirus 229E (PCR) Not detected, SARS-CoV-2 (PCR) Not detected, Coronavirus NL63 (PCR) Not detected, Human Metapneumovir PCR Not detected, Influenza A (H1) PCR Not detected, Influ A (H1N1/09) PCR Not detected, Influenza A (H3) PCR Not detected, Influenza Type A (PCR) Not detected, Influenza Type B (PCR) Not detected, M. pneumoniae (PCR) Not detected, Parainfluenza 1 (PCR) Not detected, Parainfluenza 2 (PCR) Not detected, Parainfluenza 3 (PCR) Not detected, Parainfluenza 4 (PCR) Not detected, RSV (PCR) Not detected, Entero/Rhino (PCR) Not detected 12/25/24 00:53: WBC 18.5 H, RBC 4.33, Hgb 13.6, Hct 40.3, MCV 93.1, MCH 31.4 H, MCHC 33.7, RDW 12.7, Plt Count 429 H, MPV 10.3, Neut % (Auto) 46.6, Lymph % (Auto) 38.5, [place] % (Auto) 9.4 H, Eos % (Auto) 3.2, Baso % (Auto) 0.5, Neut # (Auto) 8.6 H, Lymph # (Auto) 7.1 H, [place] # (Auto) 1.7 H, Eos # (Auto) 0.6 H, Baso # (Auto) 0.1, Total Counted 100, Neutrophils % (Manual) 47, Lymphocytes % (Manual) 49, Monocytes % (Manual) 2, Eosinophils % (Manual) 2, Platelet Estimate Normal, RBC Morphology Normal, ESR 13, Sodium 138, Potassium 3.1 L, Chloride 100, Carbon Dioxide 30, Anion Gap 11.1, BUN 9, Creatinine 0.70, Estimated Creat Clear 124, Estimated GFR 90, Est GFR ( Amer) 109, Glucose 91, Lactate 0.7, Calcium 8.8, Total Bilirubin 0.3, AST 31, ALT 49, Alkaline Phosphatase 55, C-Reactive Protein 1.3, Total Protein 6.9, Albumin 4.2, Globulin 2.7, Albumin/Globulin Ratio 1.6, Procalcitonin 0.052, TSH 4.33, Free T4 0.90, Serum HCG, Qual Negative, HCV Ab TREVOR w/Rflx PCR Qn Negative, HIV Ag/Ab Combo Qual Negative 12/25/24 00:53 12/25/24 00:53 Orders (Tests/Meds): ED MEDICATIONS Discontinued Medications Generic Name Dose Route Start Last Admin Trade Name Freq PRN Reason Stop Dose Admin Lactated Ringer's 1,000 mls @ 999 mls/hr 12/25/24 00:28 12/25/24 00:42 Lactated Ringer's 1000 Ml Bag IV 12/25/24 01:28 999 mls/hr .Q1H1M ONE Administration Iopamidol 75 ml 12/25/24 01:58 12/25/24 01:58 Iopamidol-370 (76%);100ml Bottle IV 12/25/24 01:59 75 ml ONCE ONE Administration Ketorolac Tromethamine 15 mg 12/25/24 00:28 12/25/24 00:42 Ketorolac 30mg/Ml Vial IV 12/25/24 00:29 15 mg ONCE ONE Administration Sodium Chloride 10 ml 12/25/24 01:58 12/25/24 01:58 Sodium Chloride 0.9% 10ml Syr (Rad Only) IV 12/25/24 01:59 10 ml ONCE ONE Administration ORDERS Category Date Time Status CT soft tissue neck w con Stat Cat Scan 12/25/24 00:28 Completed CBC w/Auto Diff [Complete Blood Count Auto Diff] Stat Lab 12/25/24 00:53 Completed CMP [Comprehensive Metabolic Panel] Stat Lab 12/25/24 00:53 Completed CRP [C-Reactive Protein] Stat Lab 12/25/24 00:53 Completed ESR [Erythrocyte Sedimentation Rate] Stat Lab 12/25/24 00:53 Completed Free T4 (Free Thyroxine) Stat Lab 12/25/24 00:53 Completed Full Resp Panel w/COVID ([facility]) Routine Lab 12/25/24 00:33 Completed HCG Qualitative, Serum Stat Lab 12/25/24 00:53 Completed HIV Combo Stat Lab 12/25/24 00:53 Completed Hepatitis C Ab Qual. W/ RFX Stat Lab 12/25/24 00:53 Completed Lactic Acid Stat Lab 12/25/24 00:53 Completed Procalcitonin Stat Lab 12/25/24 00:53 Completed Strep Scrn Group A (Rapid) Stat Lab 12/25/24 00:30 Completed TSH [Thyroid Stimulating Hormone] Stat Lab 12/25/24 00:53 Completed Blood Culture Stat Micro 12/25/24 00:47 Received Strep Screen Confirmation Stat Micro 12/25/24 00:30 Received Medical Decision Narrative: In summary, this 49-year-old female whose social determinants of health including tobacco use which increases risk of cancer as well as delays healing presents to the emergency department today with sensation of swelling in the floor of the mouth/throat, generalized weakness. On initial evaluation patient is hemodynamically stable, afebrile, no distress on arrival, ambulatory into the ER, normal respirations without stridor, tolerating secretions, no swelling of the posterior oropharynx, phonating normally, TM normal bilaterally, posterior oropharynx is mildly erythematous but no exudates, I do not appreciate palpable adenopathy, the floor of the mouth is not woody or swollen, no tongue elevation, structures of the neck are symmetric on exam. Differential diagnosis includes but is not limited to viral syndrome, strep, lymphadenopathy, tonsillitis, malignancy, bacteremia, thyroid abnormality, electrolyte abnormality, I considered but do not appreciate evidence of peritonsillar abscess, also considered retropharyngeal abscess but patient does not have pain with extension of the neck or fevers, also considered epiglottitis but patient does not have midline sore throat, difficulty breathing, drooling, or difficulty swallowing. With patient's generalized weakness and lack of neurodeficits I do not have concern for stroke but did consider infectious etiology as well as the possibility of adrenal insufficiency due to multiple days of dexamethasone use though I have lower suspicion for this since patient was only on a 6-day course. Based on these concerns, I ordered broad serum workup including blood cultures, lactic, thyroid studies, inflammatory markers, procalcitonin, I am also repeating patient's CT soft tissue neck since she states she initially had improvement and is now reporting worsening again. Patient received Toradol, LR initially for treatment. Labs personally reviewed demonstrate increasing leukocytosis, WBC today 18.5, up from 16.57 days ago. Patient's neutrophil predominance has decreased and she now has other predominant cell lines, this is possibly related to recent steroid use. Strep negative. Patient does have mild hypokalemia, free T4 normal at 0.9, hCG negative, remainder patient's CMP is normal. Labs are reassuring against adrenal insufficiency. ESR normal at 13, CRP normal, TSH normal I personally interpreted CT soft tissue neck and do not appreciate significant change in the patient's lingual tonsils, airway is patent. See radiology read for final interpretation. Radiology read is in agreement, since patient has been on 1 week of antibiotics and steroids and has not had significant improvement, that does increase my suspicion of potentially more dangerous etiology including malignancy. With patient having slight worsening of symptoms since stopping the steroids, I believe ENT consult and transfer is indicated. I discussed this case with [facility] on-call ENT Dr. Mirza. After reviewing patient's symptoms and findings, he recommends transfer to their ER for further evaluation. I spoke with ER physician Dr. Whitaker and reviewed labs and imaging as well as patient's current symptoms with her. Patient has been graciously excepted for ED to ED transfer. Patient's airway is patent, she is tolerating secretions and protecting her airway well with no change in phonation. Symptoms have not changed while in the ER. She is resting comfortably at this time. I discussed transfer with her and she is agreeable to this plan. While I have low concern for acute decompensation or airway compromise with patient stable imaging, I do think it is most appropriate for patient to go via ambulance transfer. I do not believe she requires pretransfer intubation at this time given stable findings on workup and her stability in the ER. Patient had been sipping on water to keep her throat moist, I instructed her to be n.p.o. until she was evaluated at [facility] in case they decide she needs a procedure or sedation. She agreed to this. Ambulance has been called for transportation. On reassessment immediately before transportation, patient continues to be hemodynamically stable with patent airway, no stridor, tolerating secretions, normal phonation, good oxygen saturation. She was transferred in stable condition. Critical Care Critical Care Time Critical Care Time: No
[2024-12-25 00:38] LABS: Adenovirus,PCR Not Detected (NotDetected); Bordetella Pertussis Not Detected (NotDetected); Chlamydophila Pneumoniae, PCR Not Detected (NotDetected); Coronavirus 19, PCR Not Detected (NotDetected); Coronavirus 229E Not Detected (NotDetected); Coronavirus NL63 Not Detected (NotDetected); Coronavirus OC43 Not Detected (NotDetected); Coronovirus HKU1,PCR Not Detected (NotDetected); Human Metapneumovirus Not Detected (NotDetected); Influenza A, PCR Not Detected (NotDetected); Influenza AH1, 2009 Not Detected (NotDetected); Influenza AH1, PCR Not Detected (NotDetected); Influenza AH3,PCR Not Detected (NotDetected); Influenza B, PCR Not Detected (NotDetected); Mycoplasma Pneumoniae, PCR Not Detected (NotDetected); Parainfluenza 1, PCR Not Detected (NotDetected); Parainfluenza 2, PCR Not Detected (NotDetected); Parainfluenza 3, PCR Not Detected (NotDetected); Parainfluenza 4, PCR Not Detected (NotDetected); Respiratory Syncytial Virus Not Detected (NotDetected); Rhinovirus/Enterovirus Not Detected (NotDetected)
[2024-12-25] MEDS: KETOROLAC 30MG/ML VIAL 15 MG IV (00:42)
[2024-12-25] MEDS: LACTATED RINGERS 1000ML 1,000 ML 999 ML IV (00:42)
[2024-12-25 00:54] LABS: Strep Scrn Group A (Rapid) Negative (Negative)
[2024-12-25 01:05] LABS: Basophils # 0.1 K/mm3 (0-0.2); Basophils % 0.5 % (0.1-2.0); Eosinophils # 0.6 K/mm3 (0.0-0.4); Eosinophils % 3.2 % (0.1-12.0); Hematocrit 40.3 % (37.0-47.0); Hemoglobin 13.6 g/dL (12.2-16.2); Lymphocytes # 7.1 K/mm3 (0.7-4.5); Lymphocytes % 38.5 % (10-50); Mean Corpuscular HGB Conc 33.7 g/dL (31.8-35.4); Mean Corpuscular Hemoglobin 31.4 pg (27.0-31.2); Mean Corpuscular Volume 93.1 fl (81-99); Mean Platelet Volume 10.3 fl (7.4-10.4); Monocytes # 1.7 K/mm3 (0.1-1.0); Monocytes % 9.4 % (1.7-9.3); Neutrophils # 8.6 K/mm3 (1.8-7.8); Neutrophils % 46.6 % (37.0-80.0); Platelet Count 429 K/mm3 (142-424); Red Blood Count 4.33 M/mm3 (4.20-5.40); Red Cell Distribution Width 12.7 % (11.5-17.5); White Blood Count 18.5 K/mm3 (4.8-10.8)
[2024-12-25 01:06] LABS: MANUAL DIFFERENTIAL MANUAL DIFFERENTIAL (MANUAL DIFF)
[2024-12-25 01:10] LABS: Albumin Level 4.2 g/dl (3.5-5.0); Chloride 100 mmol/L (98-107); Potassium 3.1 mmoL/L (3.5-5.1); Sodium 138 mmol/L (136-145)
[2024-12-25 01:12] LABS: Blood Urea Nitrogen 9 mg/dl (7-17); Creatinine Clearance Estimated 124 mL/min (50-200); Estimated Glomerular Filt Rate 90 ml/min (>60); GFR (African American) 109 ML/MIN (>60)
[2024-12-25 01:13] LABS: Alanine Aminotransferase 49 U/L (12-78); Albumin/Globulin Ratio 1.6 (1.1-1.8); Alkaline Phosphatase 55 U/L (38-126); Anion Gap 11.1 mEq/L (5-15); Aspartate Amino Transferase 31 U/L (14-36); Bilirubin,Total 0.3 mg/dl (0.2-1.3); Calcium 8.8 mg/dl (8.4-10.2); Carbon Dioxide 30 mmol/L (22.0-30.0); Globulin 2.7 g/dL (1.3-3.2); Glucose 91 mg/dl (74-100); Total Protein,Serum 6.9 g/dl (6.3-8.2)
[2024-12-25 01:19] LABS: Lactic Acid 0.7 mmol/L (0.7-2.1)
[2024-12-25 01:36] LABS: HCG Qualitative, Serum Negative (Negative)
[2024-12-25 01:41] LABS: Erythrocyte Sedimentation Rate 13 mm/hr (0-20)
[2024-12-25 01:46] LABS: Thyroid Stimulating Hormone 4.33 uIU/mL (0.465-4.68)
[2024-12-25] MEDS: SODIUM CHLORIDE 0.9% 10ML SYR (RAD ONLY) 10 ML IV (01:58)
[2024-12-25] MEDS: IOPAMIDOL-370 (76%);100ML BOTTLE 75 ML IV (01:58)
[2024-12-25 02:01] LABS: HIV Combo NEGATIVE (Negative)
[2024-12-25 02:09] LABS: Hepatitis C Ab Qual. W/ RFX NEGATIVE (Negative)
[2024-12-25 02:14] LABS: C-Reactive Protein 1.3 mg/L (0-4)
[2024-12-25 02:26] LABS: Procalcitonin 0.052 ng/mL (0.0-2.0)
--- NOTE | 2024-12-25 02:35 | PC.NURSE ---
MD on phone with [facility]- ENT at this time
[2024-12-25 02:54] LABS: Eosinophils % 2 % (0-3); Lymphocytes % 49 % (10-50); Monocytes % 2 % (2-9); Neutrophils % 47 % (42-76); Total Cells Counted 100
[2024-12-25 02:55] LABS: Platelet Estimate Normal; RBC Morphology Normal
[2024-12-25 02:57] VITALS: BP 101/79; PULSE 78; RESP 18; TEMP 36.7; O2SAT 98
--- NOTE | 2024-12-25 03:00 | PC.NURSE ---
Patient and son updated on POC, EMS arrived to transferred pt to ED. Patient voiced no questions on POC.
== END 2024-12-25 03:06 | disposition short-term general hospital (02) ==
PROVIDERS: Emergency Provider Emergency Medicine; PCP Family Medicine
DX: J03.90 Acute tonsillitis, unspecified (principal); R09.A2 Foreign body sensation, throat; R53.1 Weakness; R22.1 Localized swelling, mass and lump, neck; F17.210 Nicotine dependence, cigarettes, uncomplicated
CPT/HCPCS: 70491; 80053; 83605; 84145; 84439; 84443; 84703; 85007; 85025; 85027; 85651; 86140; 86803; 87040; 87389; 87430; 87633; 96361; 96374; 99285; J1885; J7120; Q9967

== ENCOUNTER 2025-01-22 14:22 | Outpatient (CLI) | payer OTHER, SELFPAY ==
[2025-01-22 14:46] LABS: Basophils # 0.1 K/mm3 (0-0.2); Basophils % 1.2 % (0.1-2.0); Eosinophils # 0.3 K/mm3 (0.0-0.4); Eosinophils % 3.6 % (0.1-12.0); Hemoglobin 13.4 g/dL (12.2-16.2); Lymphocytes # 2.2 K/mm3 (0.7-4.5); Lymphocytes % 29.4 % (10-50); Mean Corpuscular HGB Conc 33.5 g/dL (31.8-35.4); Mean Corpuscular Hemoglobin 31.6 pg (27.0-31.2); Mean Corpuscular Volume 94.3 fl (81-99); Mean Platelet Volume 10.3 fl (7.4-10.4); Monocytes # 0.8 K/mm3 (0.1-1.0); Monocytes % 10.2 % (1.7-9.3); Neutrophils # 4.2 K/mm3 (1.8-7.8); Neutrophils % 55.3 % (37.0-80.0); Platelet Count 439 K/mm3 (142-424); Red Blood Count 4.24 M/mm3 (4.20-5.40); Red Cell Distribution Width 13.1 % (11.5-17.5); White Blood Count 7.5 K/mm3 (4.8-10.8)
[2025-01-22 15:08] LABS: Chloride 104 mmol/L (98-107); Sodium 138 mmol/L (136-145)
[2025-01-22 15:12] LABS: Blood Urea Nitrogen 7 mg/dl (7-17); Calcium 9.1 mg/dl (8.4-10.2); Carbon Dioxide 26 mmol/L (22.0-30.0); Estimated Glomerular Filt Rate 77 ml/min (>60); GFR (African American) 93 ML/MIN (>60); Glucose 91 mg/dl (74-100)
== END 2025-01-22 23:59 | disposition home or self-care (01) ==
LOC: LAB 14:22
PROVIDERS: PCP Family Medicine; Visit Provider Family Medicine
DX: D72.829 Elevated white blood cell count, unspecified (principal); E87.6 Hypokalemia
CPT/HCPCS: 36415; 80048; 85025

== ENCOUNTER 2025-02-19 10:58 | Outpatient (CLI) | payer OTHER, SELFPAY ==
--- NOTE | 2025-02-19 11:01 | CT_ITS ---
FINAL REPORT TECHNIQUE: Thin section axial CT images were obtained through the neck after intravenous contrast administration. Coronal and sagittal reformats were also obtained. This study was performed with techniques to keep radiation doses as low as reasonably achievable (ALARA). Individualized dose reduction techniques using automated exposure control or adjustment of mA and/or kV according to the patient's size were employed. CLINICAL HISTORY: follow up to monitor, neck pain and swelling, dysphagia COMPARISON: 12/18/2024 FINDINGS: The nasopharynx is unremarkable. There is improved tissue prominence and Waldeyer's ring compared to the prior exam in November. There continue to be large lingual tonsils. The epiglottis does not appear thickened. The larynx is unremarkable as is the thyroid gland. The salivary glands are without acute abnormality. There are persistent enlarged bilateral cervical nodes. An index node in the right posterior triangle measures 15 mm on image #36, and is unchanged. The visualized sinuses are clear. There is limited evaluation of the upper chest, without acute abnormality. There is no acute osseous abnormality. There is a small enhancing lesion superior to the left sphenoid wing measuring 12 mm in size. This may represent a small meningioma. No acute osseous abnormality is identified. IMPRESSION: Persistent enlargement of the lingual tonsils, and malignancy is not excluded. Recommend direct visualization. Persistent enlarged bilateral cervical nodes remain present as well. There is a small enhancing lesion intracranially superior to the left sphenoid wing measuring 12 mm in size, that may represent a small meningioma. Recommend MRI of the head with and without contrast for further evaluation. Reviewed, Interpreted and Dictated by Talia Power MD Transcribed by Ashanti Lutz Authenticated and [facility]
[2025-02-19] MEDS: SODIUM CHLORIDE 0.9% 10ML SYR (RAD ONLY) 10 ML IV (11:28)
[2025-02-19] MEDS: IOPAMIDOL-370 (76%);100ML BOTTLE 75 ML IV (11:28)
== END 2025-02-19 23:59 | disposition home or self-care (01) ==
LOC: RAD 10:59
PROVIDERS: PCP Family Medicine; Visit Provider Nurse Practitioner
DX: J38.4 Edema of larynx (principal)
CPT/HCPCS: 70491; Q9967

== ENCOUNTER 2025-06-11 23:17 | Emergency (ER) | payer OTHER, SELFPAY ==
[2025-06-11 23:27] VITALS: BP 138/84; PULSE 81; RESP 18; TEMP 36.6; O2SAT 100; BMI 25.8
--- OUTSIDE RECORDS SUMMARY | 2025-06-11 23:29 | XMS_ITS | Clinical Summary ---
Author Organization [facility] Address [address] [place] [id number] Care Team Providers Care Thinner Sprayer Name Role Phone Pcp, No Primary Care Provider [phone] Source Comments This information has been disclosed to you from confidential records protectedfrom disclosure by state law. You shall make no further disclosure of thisinformation without the specific, written, and informed release of theindividual to whom it pertains, or as otherwise permitted by law. A generalauthorization for the release of medical or other information is not sufficientfor the purposes of therelease of HIV test results or diagnoses. [id number] Allergies Active Allergy Reactions Criticality Noted Date Comments Duloxetine Other (See Comments) 12/25/2024 dizziness Morphine Hives 12/25/2024 Medications No known medications Social History Tobacco Use Types Packs/Day Years Used Date Smoking Tobacco: Never Assessed Comments Unknown Sex and Gender Information Value Date Recorded Sex Assigned at Not on file Legal Sex Female 7:43 PM EST Gender Identity Not on file Sexual Orientation Not on file Last Filed Vital Signs Vital Sign Reading Time Taken Comments Blood Pressure 122/77 12/25/2024 4:36 AM EST Pulse 63 12/25/2024 4:36 AM EST Temperature 36.5 C (97.7 F) 12/25/2024 4:36 AM EST Respiratory Rate 16 12/25/2024 4:36 AM EST Oxygen Saturation 98% 12/25/2024 4:36 AM EST Inhaled Oxygen Concentration 98% 12/25/2024 4 :36 AM EST Weight - - Height - - Body Mass Index - - Plan of Treatment Health Maintenance Due Date Last Done Comments Abnormal Colonoscopy Follow Up 1977 Hepatitis C Screening (MyChart) 1977 Alcohol Misuse Screening 1995 Depression Screening 1995 HIV Screening 1995 Immunization: DTaP/Tdap/Td ( 1 - Tdap) 1996 Immunization: Hepatitis B (1 of 3 - 19+ 3-dose series) 1996 Cervical Cancer Screening/Pa p Smear (MyChart) 2007 Mammogram (MyChart) 2017 Cologuard (FIT-DNA) 2022 Colonoscopy 2022 Colorectal Cancer Screening (MyChart) 2022 Stool Testing (gFOBT) 2022 Immunization: COVID-19 ( season) 2024 Immunization: Influenza (MyC escalante) (#1) 2025 Immunization: Pneumococcal Aged Out N o longer eligible based on patient's age to complete this topic Insurance [facility] [facility] [place] [facility] Care Teams Thinner Sprayer Relationship Specialty Start Date End Date Pcp, No No Address PCP - General 12/25/24
[2025-06-11 23:31] VITALS: BP 110/80; PULSE 87; O2SAT 99
--- NOTE | 2025-06-11 23:43 | ED_ITS ---
Discharge Plan Disposition Patient Disposition: Home, Self-Care Condition: Good Prescriptions Prescriptions: No Action fluticasone propionate [Flonase Allergy Relief] 50 mcg/actuation spray,suspension 1 spray intranasal BID Qty: 180 3RF Rx Instructions: administer into each nostril pregabalin [Lyrica] 25 mg capsule 25 mg PO BID PRN (Reason: pain) Qty: 20 0RF omeprazole 40 mg capsule,delayed release(DR/EC) 40 mg PO DAILY Qty: 30 2RF diphenhydramine HCl 25 MG tablet 25 mg PO Q8 PRN (Reason: Rash) 3 Days Qty: 9 0RF cetirizine 10 MG tablet 10 mg PO DAILY Referrals Follow up/Referrals: Carlos Bello MD [Primary Care Provider, Internal Medicine] - See instructions Activity Restrictions/Add. Instructions Additional Instructions/Restrictions: You were evaluated in the ER and are believed to be appropriate for discharge at this time. As discussed, continue taking a daily antihistamine, since you have been on Zyrtec for so long I would recommend stopping the Zyrtec and starting taking Xyzal or Shelbi instead. Continue using cold compresses on the area for 20 minutes at a time. Elevate above the level of the heart when possible to reduce swelling. You can apply topical cream to the area for itching if needed, just do NOT use Benadryl cream. Make an appointment with your primary care doctor for reevaluation in 2 to 3 days, request a referral to an line prep cook from them. Return to the ER with any new, worsening, or otherwise concerning symptoms as discussed Clinical Impressions Clinical Impression: Local reaction to bee sting Print Language Print Language: Armenian Discharge ED Provider: Dexter Vital General Adult HPI General Chief complaint: Allergic Reaction Stated complaint: wasp sting R hand middle finger, swelling Time Seen by Provider: 06/11/25 23:32 Mode of Arrival: Ambulatory Source of Information: Patient Description of Symptoms (Recalled from ER Triage Doc. by RN): Patient was stung 3 times by wasp on middle finger on right hand at around 10pm. It is swollen. Has taken X4 ibuprofen and X2 benadryl History of Present Illness HPI narrative: 49-year-old female with a history of seasonal allergies presents to the ER for right hand pain and swelling after a wasp sting. Patient reports she was stung around 10 PM and then went inside, washed her hands, and took medications. She reports she took 2 Benadryl and 4 ibuprofen around 10:30 PM. She reports she still has redness, pain, and itching. She has no difficulty breathing or swallowing, no swelling of the lips or tongue, no vomiting. She has no history of anaphylaxis and has no history of needing an EpiPen. No numbness, tingling, or weakness, no other complaints or concerns. Related Data Home Medications ?Medication ?Instructions ?Recorded ?Confirmed cetirizine 10 mg tablet 10 mg PO DAILY Allergy sympt oms 07/08/20 03/05/25 Previous Rx's ?Medication ?Instructions ?Recorded diphenhydramine HCl 25 mg tablet 25 mg PO Q8 PRN Rash 3 days #9 tabs 10/19/21 pregabalin 25 mg capsule (Lyrica) 25 mg PO BID PRN kim n #20 caps 11/12/24 fluticasone propionate 50 1 spray intranasal BID #180 mL 01/29/25 mcg/actuation nasal spray,suspension (Flonase Allergy Relief) omeprazole 40 mg capsule,delayed 40 mg PO DAILY #30 ca ps 05/26/25 release Allergies Allergy/AdvReac Type Severity Reaction Status Date / Time morphine Allergy Rash Verified 03/05/25 14:09 duloxetine (From Cymbalta) AdvReac Dizziness Verified 03/05/25 14:09 [facility] Disclaimer: The information contained in this section may have been updated after the patient was seen, as this information can be updated by other users. Medical History Vocal cord edema Chest pain Dyspnea Tobacco dependence syndrome Hx of rheumatic fever Palpitations Social History Smoking Status: Current every day smoker tobacco type: cigarettes packs per day: 1 alcohol intake: never substance use type: denies use current occupational status: employed Travel in the last 8 weeks?: None housing: house caffeine: Yes Have you lived/traveled outside US in past 30 days?: No Contact w/someone who lives/traveled outside US past 30 days?: No Exposure to someone with infectious disease in past 14 days?: No Do you have a fever (greater than 100.4 F or 38 C)?: No Have you tested positive for COVID-19?: No Exposed to someone with COVID-19 in past 14 days?: No Do you have a sore throat?: No Do you have a cough?: No Do you have any weakness?: No Do you have any diarrhea?: No Are you experiencing any unusual bleeding?: No Do you have any muscle aches/pain?: No Do you have any abdominal pain?: No Are you experiencing loss of taste or smell?: No Other Medical History Have you received the Flu Vaccine for this season: No Have you received the Pneumonia Vaccine: No ROS Obtained: Yes Systems reviewed as appropriate & no additional complaints except as documented per HPI Physical Exam General General appearance: alert and in no apparent distress Head Head exam: atraumatic and normocephalic Eye Eye exam: Present PERRL and EOMI ENT ENT exam: Present normal oropharynx, mucous membranes moist and other (no angioedema) Neck Neck exam: Present normal inspection and full ROM Chest Chest inspection: Present symmetric chest wall rise Respiratory Respiratory exam: Present normal lung sounds bilaterally and other (Saturating 99% on room air); Absent respiratory distress, wheezes or stridor Cardiovascular Cardiovascular exam: Present regular rate and normal rhythm Abdominal Exam Abdominal exam: Present soft; Absent distention or tenderness Extremities Exam Extremities exam: Present full ROM Expanded Upper Extremity Exam Right: Hand exam: Present swelling (Swelling is worst on the right third phalanx but there is also swelling of the 2nd and 4th phalanx and swelling more proximally over the metacarpals, no fluctuance, no induration, neurovascularly intact, full range of motion, no foreign body) and erythema; Absent abrasion or laceration Hand L/R back image: 2 1. Erythema, swelling with no induration or fluctuance, no foreign body Neurological Exam Neurological exam: Present alert and oriented X3; Absent motor sensory deficit Psychiatric Psychiatric exam: Present normal affect and normal mood Skin Skin exam: Present warm and dry Medical Decision Making Medical Records Medical records reviewed: Yes I reviewed the patient's medical records. Screening: Per USPSTF and CDC recommendations, given the prevalence of disease in our region, it is our hospital?s policy to screen for HIV and viral Hepatitis for all patients aged 18 and over and those with ongoing risk factors. Rhys Inquiry Pt receiving controlled substance: No Vital Signs: 06/11/25 23:27 06/11/25 23:31 Temperature 97.9 F Temperature Source Oral Pulse Rate 87 Pulse Rate [Right Radial] 81 Respiratory Rate 18 Blood Pressure 110/80 Blood Pressure [Right Arm] 138/84 Blood Pressure Mean [Right Arm] 102 Blood Pressure Source [Right Arm] Automatic Cuff Blood Pressure Position [Right Arm] Supine 02 Sat by Pulse Oximetry 100 99 Oxygen Delivery Method Room Air Medical Decision Narrative: In summary, this 49-year-old female presents to the emergency department today with right hand redness, swelling, itching after bee sting shortly prior to arrival. On initial evaluation patient is hemodynamically stable, afebrile, no evidence of shock, airway patent, no angioedema, no wheezing, no abdominal symptoms. There is no multisystem organ involvement or shock, therefore no anaphylaxis. There is also no angioedema though this was also considered on my differential. With the recent sting in the last 2 hours there is not concern for active cellulitis or other infection though these were also considered. I do not believe any labs or imaging are indicated. Patient has already taken Benadryl and ibuprofen which are appropriate interventions. We did discuss her history of seasonal allergies and having taken the same [id number] antihistamine for decades. I recommended that she consider changing antihistamines for better control of her symptoms and to continue treating the right hand swelling. She is neurovascularly intact. Patient is appropriate for discharge at this time. She is comfortable with this plan. I gave patient instructions on continued symptomatic monitoring and management, follow-up instructions including to request an line prep cook referral from her PCP, and return precautions for the ER including but not limited to signs of infection or worsening or severe allergic reaction. She indicated understanding and was discharged in stable condition. Critical Care Critical Care Time Critical Care Time: No
[2025-06-11 23:46] VITALS: BP 110/80; PULSE 72; RESP 16; TEMP 36.6; O2SAT 98
== END 2025-06-11 23:56 | disposition home or self-care (01) ==
PROVIDERS: Emergency Provider Emergency Medicine; PCP Family Medicine
DX: T63.441A Toxic effect of venom of bees, accidental (unintentional), initial encounter (principal); R22.41 Localized swelling, mass and lump, right lower limb
CPT/HCPCS: 99283

== ENCOUNTER 2025-07-26 15:07 | Emergency (ER) | payer OTHER, SELFPAY ==
[2025-07-26 15:12] VITALS: BP 120/85; PULSE 76; RESP 15; TEMP 36.9; O2SAT 100; BMI 27.3
--- OUTSIDE RECORDS SUMMARY | 2025-07-26 15:15 | XMS_ITS | Clinical Summary ---
Author Organization [facility] Address [address] [place] [id number] Care Team Providers Care Child Custody Evaluator Name Role Phone Pcp, No Primary Care [...] therelease of HIV test results or diagnoses. [id number] Allergies Active Allergy Reactions Criticality Noted [...] age to complete this topic Insurance [employer] [facility] Care Teams Child Custody Evaluator Relationship Specialty Start Date End Date Pcp, No No Address PCP - General 12/25/24
--- NOTE | 2025-07-26 15:18 | ED_ITS ---
Discharge Plan Disposition Patient Disposition: Home, Self-Care Prescriptions Prescriptions: New azithromycin 250 mg tablet 250 mg PO DAILY 4 Days Qty: 4 0RF methylprednisolone [Medrol (Hi)] 4 mg tablets,dose pack See Rx Instructions .ROUTE .COMPLEX Qty: 21 0RF Rx Instructions: orally per package directions No Action fluticasone propionate [Flonase Allergy Relief] 50 mcg/actuation spray,suspension 1 spray intranasal BID Qty: 180 3RF Rx Instructions: administer into each nostril pregabalin [Lyrica] 25 mg capsule 25 mg PO BID PRN (Reason: pain) Qty: 20 0RF omeprazole 40 mg capsule,delayed release(DR/EC) 40 mg PO DAILY Qty: 30 2RF diphenhydramine HCl 25 MG tablet 25 mg PO Q8 PRN (Reason: Rash) 3 Days Qty: 9 0RF cetirizine 10 MG tablet 10 mg PO DAILY Referrals Follow up/Referrals: Carlos Bello MD [Primary Care Provider, Internal Medicine] - See instructions Activity Restrictions/Add. Instructions Additional Instructions/Restrictions: You can follow-up the results of your viral swab online. You likely have a upper respiratory infection. You are being 4 days of azithromycin as well as a Medrol Dosepak. Follow-up with your primary care physician. If you develop any new or worsening symptoms, or if you become concerned for your health for any re ason, return to the emergency department for evaluation peer Clinical Impressions Clinical Impression: Acute upper respiratory infection Print Language Print Language: Egyptian Discharge ED Provider: Hosea Walters General Adult HPI General Chief complaint: Upper Respiratory Infection Stated complaint: cough,sore throat,chest congestion Time Seen by Provider: 07/26/25 15:17 Mode of Arrival: Ambulatory Source of Information: Patient Description of Symptoms (Recalled from ER Triage Doc. by RN): jimmy states she has been congested with cough for one week. History of Present Illness HPI narrative: Chula north is a 49y female with a history of tobacco use, rheumatic fever as a kid, who presents to the ED for complaints of a productive cough of clear sputum, nasal and sinus congestion. Patient states that her grandkids had a viral upper respiratory illness and she was exposed to them. She states that 1.5 weeks ago, she developed nasal congestion with mucuous production, sinus and ear pressure, as well as a cough productive of green sputum. She denies any chest pain. She denies any fever or shortness of breath. She states that she cannot get in with her PCP so she presented to the ED for evaluation. Related Data Home Medications ?Medication ?Instructions ?Recorded ?Confirmed cetirizine 10 mg tablet 10 mg PO DAILY Allergy sympt oms 07/08/20 03/05/25 Previous Rx's ?Medication ?Instructions ?Recorded diphenhydramine HCl 25 mg tablet 25 mg PO Q8 PRN Rash 3 days #9 tabs 10/19/21 pregabalin 25 mg capsule (Lyrica) 25 mg PO BID PRN kim n #20 caps 11/12/24 fluticasone propionate 50 1 spray intranasal BID #180 mL 01/29/25 mcg/actuation nasal spray,suspension (Flonase Allergy Relief) omeprazole 40 mg capsule,delayed 40 mg PO DAILY #30 ca ps 05/26/25 release azithromycin 250 mg tablet 250 mg PO DAILY 4 days #4 t abs 07/26/25 methylprednisolone 4 mg tablets in See Rx Instructions PO .COMPLEX 07/26/25 a dose pack (Medrol (Hi)) #21 tabs Allergies Allergy/AdvReac Type Severity Reaction Status Date / Time morphine Allergy Rash Verified 03/05/25 14:09 duloxetine (From Cymbalta) AdvReac Dizziness Verified 03/05/25 14:09 [facility] Disclaimer: The information contained in this section may have been updated after the p atient was seen, as this information can be updated by other users. Medical History Vocal cord edema Chest pain Dyspnea Tobacco dependence syndrome Hx of rheumatic fever Palpitations Social History Smoking Status: Current every day smoker tobacco type: cigarettes packs per day: 1 alcohol intake: never substance use type: denies use current occupational status: employed Travel in the last 8 weeks?: None housing: house caffeine: Yes Have you lived/traveled outside US in past 30 days?: No Contact w/someone who lives/traveled outside US past 30 days?: No Exposure to someone with infectious disease in past 14 days?: No Do you have a fever (greater than 100.4 F or 38 C)?: No Have you tested positive for COVID-19?: No Exposed to someone with COVID-19 in past 14 days?: No Do you have a sore throat?: Yes Do you have a cough?: Yes Do you have any weakness?: No Do you have any diarrhea?: No Are you experiencing any unusual bleeding?: No Do you have any muscle aches/pain?: No Do you have any abdominal pain?: No Are you experiencing loss of taste or smell?: No Other Medical History Have you received the Flu Vaccine for this season: No Have you received the Pneumonia Vaccine: No ROS Obtained: Yes Systems reviewed as appropriate & no additional complaints except as documented Physical Exam General General appearance: alert and in no apparent distress Head Head exam: atraumatic Eye Eye exam: Present normal appearance ENT ENT exam: Present mucous membranes moist, TM's normal bilaterally, normal external ear exam and other (Congested bilaterally); Absent normal oropharynx (mild posterior oropharyngeal erythema without exudate or swelling. Uvula midline) Neck Neck exam: Present full ROM Chest Chest inspection: Present symmetric chest wall rise Respiratory Respiratory exam: Absent normal lung sounds bilaterally (mild crackles at right base), respiratory distress, wheezes or stridor Cardiovascular Cardiovascular exam: Present regular rate and normal rhythm Abdominal Exam Abdominal exam: Present soft; Absent tenderness or guarding Extremities Exam Extremities exam: Present normal inspection Back Exam Back exam: Present normal inspection Neurological Exam Neurological exam: Present alert and oriented X3 Psychiatric Psychiatric exam: Present normal affect Skin Skin exam: Present warm and dry Medical Decision Making Medical Records Screening: Per USPSTF and CDC recommendations, given the prevalence of disease in our region, it is our hospital?s policy to screen for HIV and viral Hepatitis for all patients aged 18 and over and those with ongoing risk factors. Rhys Inquiry Pt receiving controlled substance: No Vital Signs: 07/26/25 15:12 07/26/25 15:30 Temperature 98.4 F Temperature Source Oral Pulse Rate 104 H Pulse Rate [Right Radial] 76 Respiratory Rate 15 Blood Pressure 123/94 H Blood Pressure [Right Arm] 120/85 Blood Pressure Mean [Right Arm] 96 Blood Pressure Source [Right Arm] Automatic Cuff Blood Pressure Position [Right Arm] Supine 02 Sat by Pulse Oximetry 100 99 Oxygen Delivery Method Room Air Orders (Tests/Meds): ED MEDICATIONS Generic Name Dose Route Start Last Admin Trade Name Freq PRN Reason Stop Dose Admin Azithromycin 500 mg 08/30/25 16:12 Azithromycin 250mg Tablet PO 07/26/25 16:13 ONCE ONE ORDERS Category Date Time Status CXR 2 view (NOT portable) [XR chest 2V] Stat Exams 07/26/25 15:32 Taken Rapid PCR Covid and Flu A/B Stat Lab 07/26/25 15:24 Received Medical Decision Narrative: Chula north is a 49y female with a history of tobacco use, rheumatic fever as a kid, who presents to the ED for complaints of a productive cough of clear sputum, nasal and sinus congestion. Patient states that her grandkids had a viral upper respiratory illness and she was exposed to them. She states that 1.5 weeks ago, she developed nasal congestion with mucuous production, sinus and ear pressure, as well as a cough productive of green sputum. She denies any chest pain. She denies any fever or shortness of breath. She states that she cannot get in with her PCP so she presented to the ED for evaluation. On arrival, patient is normotensive, heart rate within norm limits, afebrile, oxygen saturation 99% on room air. Physical exam, reveals an overall well-appearing female in no distress. She is sitting upright in stretcher. Cardiopulmonary exam reveals no murmur or rubs. She has some mild crackles at the right base but otherwise clear lungs. She does have some nasal congestion and some mild posterior oropharyngeal erythema but no tonsillar swelling/exudates. Uvula is midline. Ears are clear bilaterally. Differential diagnosis includes, but is not limited to: Viral upper respiratory infection, sinusitis, bacterial pneumonia, atypical pneumonia, low concern for cardiac etiology such as ACS as well as low concern for pulmonary embolism given patient's symptoms appear viral in nature. Patient's PERC negative. Workup in the emergency department included: Rapid COVID/flu swab, two-view chest x-ray X-ray imaging was interpreted by me personally prior to official radiology read. There are some mild bilateral perihilar thickening consistent with viral etiology but no focal consolidation to suggest bacterial pneumonia. See final radiology report for details. Patient's viral swab is pending at this time. Given duration of patient's symptoms, will treat with azithromycin and a Medrol Dosepak. Will give 500 mg oral here in the emergency department and send with 4 days 250 mg to follow. Patient was structured to follow with her primary care physician. Return precautions were given. She was encouraged to follow-up the results of her viral swab online, however results would not change ED management and is felt that it is not necessary to wait for these results. All questions were answered. She demonstrated understanding and was in agreement this plan. She was then discharged from the emergency department in stable condition. Critical Care Critical Care Time Critical Care Time: No
[2025-07-26 15:26] LABS: Coronavirus 19, PCR Not Detected (NotDetected); Influenza A, PCR Not Detected (NotDetected); Influenza B, PCR Not Detected (NotDetected)
[2025-07-26 15:30] VITALS: BP 123/94; PULSE 104; O2SAT 99
--- NOTE | 2025-07-26 15:32 | XR_ITS ---
PROCEDURE INFORMATION: Exam: XR Chest Exam date and time: 07/26/2025 3:51 PM Age: 49 years old Clinical indication: Cough; Additional info: Cough, possible pneumonia Imaging protocol: Radiologic exam of the chest. Intravenous contrast was administered. Views: 2 views. COMPARISON: CR XR CHEST 2V 10/04/2023 6:39 PM FINDINGS: Lungs: Unremarkable. No consolidation. Pleural spaces: Unremarkable. No pleural effusion. No pneumothorax. Heart/Mediastinum: Unremarkable. No cardiomegaly. Bones/joints: Unremarkable. IMPRESSION: No acute findings.
[2025-07-26 16:00] VITALS: BP 116/87; PULSE 91; O2SAT 97
[2025-07-26] MEDS: AZITHROMYCIN 250MG TABLET 500 MG PO (16:17)
[2025-07-26 16:19] VITALS: BP 116/85; PULSE 87; RESP 15; TEMP 36.9; O2SAT 99
== END 2025-07-26 16:20 | disposition home or self-care (01) ==
PROVIDERS: Emergency Provider Student in an Organized Health Care Education/Training Program; PCP Family Medicine
DX: J06.9 Acute upper respiratory infection, unspecified (principal); E87.6 Hypokalemia; F17.210 Nicotine dependence, cigarettes, uncomplicated
CPT/HCPCS: 71046; 87636; 99282; 99283